=== PATIENT | female | born 1965 | race Caucasian/White ===

== ENCOUNTER 2017-04-22 06:15 | Emergency (ER) | payer MEDICARE, OTHER ==
[~2017-04-22] VITALS: Ht 149.9 cm; Wt 70.5 kg
[~2017-04-22 06:15] MED LIST: ACET65TA; CELE100C; COLA100C2; LISI20TA5; NEUR100C; PROV90AE; ROBA750T
[2017-04-22] MEDS ORDERED: MONT10TA2 (06:31)
[2017-04-22 09:08] VITALS: BP 133/88
--- NOTE | 2017-04-22 09:52 | REP ---
Clinical: Acute cough . Comparison: 07/30/2014 . Technique: PA and lateral. Findings: The mediastinum and cardiac silhouette are normal. The lung galloway are clear and without acute consolidation, effusion, or pneumothorax. The skeletal structures are intact and normal. Impression: 1. No acute cardiopulmonary process. Signed by Dima Espino MD 04/22/2017 09:43 A
[2017-04-22] MEDS ORDERED: ZITHTAB PO (09:58)
[2017-04-22] MEDS ORDERED: VENTAER IN (09:58)
== END 2017-04-22 10:03 | disposition home or self-care (01) ==
LOC: M ED 06:15
DX: J20.9 Acute bronchitis, unspecified (principal); Z72.0 Tobacco use

== ENCOUNTER → 2018-02-25 | Outpatient (CLI) | payer MEDICARE ==
[~2018-02-25] MED LIST changes: -ACET65TA; -CELE100C; -COLA100C2; +GASTROGRAFIN SOLUTION 30ML (Q9963) As Ordered; +ISOVUE-370 76% 100ML VIAL (Q9967) As Ordered; -LISI20TA5; -NEUR100C; -PROV90AE; -ROBA750T
[2018-02-25 09:50] LABS: HEMOGLOBIN 15.1 g/dl (12.0-15.5); MEAN CORPUSCULAR HEMOGLOBIN 30.4 pg (27.0-33.0); MEAN CORPUSCULAR HGB CONC 32.8 g/dl (32.0-36.5); MEAN CORPUSCULAR VOLUME 92.6 fl (80.0-96.0); PLATELET COUNT, AUTOMATED 191 10^3/uL (150-450); RED BLOOD COUNT 4.97 10^6/uL (4.00-5.40); WHITE BLOOD COUNT 6.8 10^3/uL (4.0-10.0)
[2018-02-25 10:07] LABS: ALBUMIN 3.6 GM/DL (3.2-5.2); ALBUMIN/GLOBULIN RATIO 1.29 (1.00-1.93); ALKALINE PHOSPHATASE 87 U/L (45-117); ALT/SGPT 26 U/L (12-78); ANION GAP 6 MEQ/L (8-16); AST/SGOT 12 U/L (7-37); BILIRUBIN,TOTAL 0.3 MG/DL (0.2-1.0); BLOOD UREA NITROGEN 12 MG/DL (7-18); CALCIUM LEVEL 9.3 MG/DL (8.5-10.1); CARBON DIOXIDE LEVEL 27 MEQ/L (21-32); CHLORIDE LEVEL 110 MEQ/L (98-107); CHOLESTEROL LEVEL 218 MG/DL (<200); CHOLESTEROL RISK RATIO 5.069 (<5); GLOMERULAR FILTRATION RATE > 60.0 (>51); GLUCOSE, FASTING 89 MG/DL (70-100); HDL CHOLESTEROL 43 MG/DL (>40); LDL CHOLESTEROL 144 MG/DL (<100); NON-HDL-C 175 MG/DL; POTASSIUM SERUM 4.4 MEQ/L (3.5-5.1); SODIUM LEVEL 143 MEQ/L (136-145); THYROID STIMULATING HORMONE 0.748 uIU/ML (0.358-3.740); TOTAL PROTEIN 6.4 GM/DL (6.4-8.2); TRIGLYCERIDES LEVEL 155 MG/DL (<150)
[2018-02-25 10:15] LABS: ESTIMATED AVERAGE GLUCOSE 111 MG/DL (60-110); HEMOGLOBIN A1c 5.5 %
== END ==
LOC: M RAD 12:31
DX: Z00.00 Encounter for general adult medical examination without abnormal findings (principal); R10.32 Left lower quadrant pain; K76.89 Other specified diseases of liver; N28.1 Cyst of kidney, acquired; D35.00 Benign neoplasm of unspecified adrenal gland; K82.9 Disease of gallbladder, unspecified
CPT/HCPCS: Q9963

== ENCOUNTER → 2018-03-11 | Outpatient (CLI) | payer MEDICARE | LOC: M RAD 06:47 | DX: K21.9 Gastro-esophageal reflux disease without esophagitis (principal) | CPT/HCPCS: 76705 ==

== ENCOUNTER 2018-05-16 10:41 | Emergency (ER) | payer MEDICARE, MEDICAID | END 2018-05-16 11:47 | disposition home or self-care (01) | LOC: M ED 10:41 | DX: J06.9 Acute upper respiratory infection, unspecified (principal); I10 Essential (primary) hypertension; J45.909 Unspecified asthma, uncomplicated; K21.9 Gastro-esophageal reflux disease without esophagitis; F33.9 Major depressive disorder, recurrent, unspecified; Z79.899 Other long term (current) drug therapy; Z88.5 Allergy status to narcotic agent; Z88.8 Allergy status to other drugs, medicaments and biological substances; F17.210 Nicotine dependence, cigarettes, uncomplicated | CPT/HCPCS: 99283 ==

== ENCOUNTER 2018-10-21 18:07 | Emergency (ER) | payer MEDICARE ==
[~2018-10-21] VITALS: Ht 149.9 cm; Wt 69.1 kg
[~2018-10-21 18:07] MED LIST changes: +ACET65TA; +CELE100C; +COLA100C2; -GASTROGRAFIN SOLUTION 30ML (Q9963) As Ordered; -ISOVUE-370 76% 100ML VIAL (Q9967) As Ordered; +LISI20TA5 PO; +MONT10TA2; +NEUR100C PO; +PROV90AE; +ROBA750T; +VENTAER IN; +ZITHTAB PO
[2018-10-21] MEDS ORDERED: DICL1GEL3 TOP (20:31)
[2018-10-21 20:37] VITALS: BP 148/83
--- NOTE | 2018-10-22 07:20 | REP ---
RIGHT ELBOW, FOUR VIEWS: HISTORY: Elbow pain. There is no acute fracture or dislocation. The joint space is normal in appearance. IMPRESSION:There is no acute fracture or dislocation. Electronically Signed by David Travis MD 10/22/2018 08:01 A
== END 2018-10-21 20:43 | disposition home or self-care (01) ==
LOC: M ED 18:07
DX: M77.11 Lateral epicondylitis, right elbow (principal); J45.909 Unspecified asthma, uncomplicated; I10 Essential (primary) hypertension; Z72.0 Tobacco use; Z79.899 Other long term (current) drug therapy; Z88.8 Allergy status to other drugs, medicaments and biological substances; Z88.5 Allergy status to narcotic agent

== ENCOUNTER 2019-01-21 08:39 | Outpatient (RCR) | payer MEDICARE, MEDICAID ==
[~2019-01-21 08:39] MED LIST changes: +DICL1GEL3 TOP
== END 2019-01-31 ==
LOC: M OT 08:39
PROVIDERS: ATTEND Physician Assistant Surgical
DX: Z47.89 Encounter for other orthopedic aftercare (principal); M77.11 Lateral epicondylitis, right elbow

== ENCOUNTER 2019-02-23 09:00 | Outpatient (RCR) | payer MEDICARE, MEDICAID ==
[2019-02-26] MEDS ORDERED: POTA10TA17 PO (19:55)
[2019-02-26] MEDS ORDERED: POTA10CA32 PO (19:55)
== END 2019-03-02 ==
LOC: M OT 09:00
PROVIDERS: ATTEND Physician Assistant Surgical
DX: Z47.89 Encounter for other orthopedic aftercare (principal); M77.11 Lateral epicondylitis, right elbow

== ENCOUNTER 2019-02-26 19:51 | Emergency (ER) | payer MEDICARE, MEDICAID ==
[~2019-02-26] VITALS: Ht 149.9 cm; Wt 69.5 kg
[2019-02-26] MEDS ORDERED: POTA10CA32 PO (19:55)
[2019-02-26] MEDS ORDERED: POTA10TA17 PO (19:55)
[2019-02-26 20:08] VITALS: BP 168/97
--- NOTE | 2019-02-27 00:11 | ECGEPIP ---
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
== END 2019-02-26 20:57 | disposition home or self-care (01) ==
LOC: M ED 19:51
DX: G54.0 Brachial plexus disorders (principal); I10 Essential (primary) hypertension; Z88.5 Allergy status to narcotic agent; Z88.8 Allergy status to other drugs, medicaments and biological substances

== ENCOUNTER 2019-03-19 20:50 | Emergency (ER) | payer MEDICAID, MEDICARE ==
[~2019-03-19] VITALS: Ht 149.9 cm; Wt 68.6 kg
[~2019-03-19 20:50] MED LIST changes: +POTA10CA32 PO; +POTA10TA17 PO
[2019-03-19] MEDS ORDERED: CETI10CA2 PO (22:43)
[2019-03-19] MEDS ORDERED: TESS100C PO (22:43)
[2019-03-19] MEDS ORDERED: FLON1SPR NARES (22:43)
[2019-03-19 22:58] VITALS: BP 141/74
== END 2019-03-19 23:01 | disposition home or self-care (01) ==
LOC: M ED 20:50
DX: J06.9 Acute upper respiratory infection, unspecified (principal); I10 Essential (primary) hypertension; J45.909 Unspecified asthma, uncomplicated; K21.9 Gastro-esophageal reflux disease without esophagitis; Z79.899 Other long term (current) drug therapy; Z88.5 Allergy status to narcotic agent; Z88.8 Allergy status to other drugs, medicaments and biological substances; Z87.891 Personal history of nicotine dependence

== ENCOUNTER 2019-07-09 11:19 | Emergency (ER) | payer MEDICARE ==
[~2019-07-09] VITALS: Ht 149.9 cm; Wt 70.3 kg
[~2019-07-09 11:19] MED LIST changes: +CETI10CA2 PO; +FLON1SPR NARES; -MONT10TA2; +MONT10TA4; +TESS100C PO
--- NOTE | 2019-07-09 12:12 | REP ---
PA and lateral chest: Comparison is 04/22/2017. The lung galloway are clear. The cardiac size is normal. The miguel, mediastinum, and skeletal structures are unremarkable. Impression: Negative PA and lateral chest. There is no interval change. Electronically Signed by Johnathan Hart MD 07/09/2019 12:04 P
[2019-07-09 13:16] LABS: INFLUENZA A AMPLIFICATION POSITIVE (NEGATIVE); INFLUENZA B AMPLIFICATION NEGATIVE (NEGATIVE)
[2019-07-09] MEDS ORDERED: ACETAMINOPHEN 325 MG TAB PO ONE (13:45)
[2019-07-09] MEDS ORDERED: ALBUTEROL SULFATE 2.5 MG/0.5 ML INH NEB SOLN NEB ONE (13:45)
[2019-07-09 14:17] VITALS: BP 137/81
== END 2019-07-09 14:19 | disposition home or self-care (01) ==
LOC: M ED 11:19
DX: J45.909 Unspecified asthma, uncomplicated (principal); J09.X2 Influenza due to identified novel influenza A virus with other respiratory manifestations; I10 Essential (primary) hypertension; F33.9 Major depressive disorder, recurrent, unspecified; K21.9 Gastro-esophageal reflux disease without esophagitis; Z79.899 Other long term (current) drug therapy; Z88.5 Allergy status to narcotic agent; Z88.8 Allergy status to other drugs, medicaments and biological substances; F17.210 Nicotine dependence, cigarettes, uncomplicated

== ENCOUNTER → 2019-08-28 | Outpatient (REF) | payer MEDICARE, MEDICAID ==
[2019-08-28 17:32] LABS: BASO # 0.1 10^3/uL (0.0-0.2); BASO % 1.1 % (0.0-1.0); EOS # 0.2 10^3/uL (0.0-0.5); EOS % 2.9 % (0.0-3.0); HEMATOCRIT 45.4 % (36.0-47.0); HEMOGLOBIN 14.5 g/dl (12.0-15.5); LYMPH # 2.4 10^3/uL (1.5-5.0); LYMPH % 34.2 % (24.0-44.0); MEAN CORPUSCULAR HGB CONC 31.9 g/dl (32.0-36.5); MEAN CORPUSCULAR VOLUME 93.8 fl (80.0-96.0); MONO # 0.6 10^3/uL (0.0-0.8); MONO % 8.7 % (0.0-5.0); NEUTROPHILS # 3.7 10^3/uL (1.5-8.5); NEUTROPHILS % 52.8 % (36.0-66.0); PLATELET COUNT, AUTOMATED 227 10^3/uL (150-450); RED BLOOD COUNT 4.84 10^6/uL (4.00-5.40)
[2019-08-28 17:33] LABS: ALBUMIN 3.6 GM/DL (3.2-5.2); ALT/SGPT 33 U/L (12-78); BILIRUBIN,TOTAL 0.3 MG/DL (0.2-1.0); BLOOD UREA NITROGEN 12 MG/DL (7-18); CALCIUM LEVEL 9.9 MG/DL (8.5-10.1); CARBON DIOXIDE LEVEL 28 MEQ/L (21-32); CHLORIDE LEVEL 106 MEQ/L (98-107); CREATININE FOR GFR 0.72 MG/DL (0.55-1.30); GLOMERULAR FILTRATION RATE > 60.0 (>51); GLUCOSE, FASTING 111 MG/DL (70-100); POTASSIUM SERUM 4.1 MEQ/L (3.5-5.1); SODIUM LEVEL 139 MEQ/L (136-145); TOTAL PROTEIN 6.8 GM/DL (6.4-8.2)
[2019-08-28 17:37] LABS: HEMOGLOBIN A1c 5.9 %
== END ==
LOC: M SFHCPLAZ 15:15
PROVIDERS: ATTEND Family Medicine
DX: E16.1 Other hypoglycemia (principal); Z79.899 Other long term (current) drug therapy
CPT/HCPCS: 36415; 80053; 83036; 83525; 84439; 84443; 85025; G0463

== ENCOUNTER 2019-12-10 17:25 | Emergency (ER) | payer MEDICARE, MEDICAID ==
[~2019-12-10] VITALS: Ht 149.9 cm; Wt 70.2 kg
[2019-12-10] MEDS ORDERED: NS 1,000 ML IV ONE (18:15)
[2019-12-10] MEDS ORDERED: ONDANSETRON 4MG/2ML VIAL IV ONE (18:15)
[2019-12-10] MEDS ORDERED: DICYCLOMINE 10 MG CAP PO ONE (18:15)
[2019-12-10 18:40] LABS: BASO # 0.1 10^3/uL (0.0-0.2); BASO % 1.1 % (0.0-1.0); EOS # 0.3 10^3/uL (0.0-0.5); EOS % 3.9 % (0.0-3.0); HEMATOCRIT 44.5 % (36.0-47.0); HEMOGLOBIN 14.6 g/dl (12.0-15.5); LYMPH # 2.7 10^3/uL (1.5-5.0); LYMPH % 37.6 % (24.0-44.0); MEAN CORPUSCULAR HEMOGLOBIN 30.4 pg (27.0-33.0); MEAN CORPUSCULAR HGB CONC 32.8 g/dl (32.0-36.5); MEAN CORPUSCULAR VOLUME 92.7 fl (80.0-96.0); MONO # 0.7 10^3/uL (0.0-0.8); MONO % 9.4 % (0.0-5.0); NEUTROPHILS # 3.4 10^3/uL (1.5-8.5); NEUTROPHILS % 47.6 % (36.0-66.0); PLATELET COUNT, AUTOMATED 202 10^3/uL (150-450); WHITE BLOOD COUNT 7.1 10^3/uL (4.0-10.0)
[2019-12-10 19:17] LABS: ALBUMIN 3.5 GM/DL (3.2-5.2); ALT/SGPT 26 U/L (12-78); BILIRUBIN,DIRECT < 0.1 MG/DL (0.0-0.2); BILIRUBIN,TOTAL 0.3 MG/DL (0.2-1.0); LIPASE 108 U/L (73-393); TOTAL PROTEIN 6.6 GM/DL (6.4-8.2)
[2019-12-10] MEDS ORDERED: SIME40TA PO (19:32)
[2019-12-10] MEDS ORDERED: ONDA4TAB6 PO (19:32)
[2019-12-10 19:48] VITALS: BP 159/88
== END 2019-12-10 19:50 | disposition home or self-care (01) ==
LOC: M ED 17:25
DX: R11.2 Nausea with vomiting, unspecified (principal); G89.29 Other chronic pain; R10.9 Unspecified abdominal pain; F17.200 Nicotine dependence, unspecified, uncomplicated; I10 Essential (primary) hypertension; J45.909 Unspecified asthma, uncomplicated; K21.9 Gastro-esophageal reflux disease without esophagitis; Z88.6 Allergy status to analgesic agent; Z88.8 Allergy status to other drugs, medicaments and biological substances; Z79.51 Long term (current) use of inhaled steroids; Z79.899 Other long term (current) drug therapy
CPT/HCPCS: 80047; 80076; 83690; 85025; 99284; J2405

== ENCOUNTER → 2020-03-14 | Outpatient (CLI) | payer MEDICARE ==
[~2020-03-14] MED LIST changes: +ONDA4TAB6 PO; +SIME40TA PO
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
== END ==
LOC: M PAIN 08:15
PROVIDERS: ATTEND Family Medicine
DX: M54.9 Dorsalgia, unspecified (principal); I10 Essential (primary) hypertension; G89.4 Chronic pain syndrome; G25.81 Restless legs syndrome; E78.5 Hyperlipidemia, unspecified; E55.9 Vitamin D deficiency, unspecified; M79.7 Fibromyalgia; F17.210 Nicotine dependence, cigarettes, uncomplicated; Z79.899 Other long term (current) drug therapy; Z88.5 Allergy status to narcotic agent; Z88.6 Allergy status to analgesic agent; Z88.8 Allergy status to other drugs, medicaments and biological substances

== ENCOUNTER → 2020-03-24 | Outpatient (CLI) | payer MEDICARE, OTHER, MEDICAID ==
[~2020-03-24] MED LIST changes: +KETO10TAB PO
--- NOTE | 2020-03-24 11:57 | REPVR ---
PROCEDURE INFORMATION: Exam: MR Lumbar Spine Without Contrast. Exam date and time: 03/24/2020 11:39 AM Age: 54 years old Clinical indication: Pain; Other: Dorsalgia TECHNIQUE: Imaging protocol: Multiplanar magnetic resonance images of the lumbar spine without intravenous contrast. COMPARISON: No relevant prior studies available. FINDINGS: Vertebrae: There is straightening of the normal lumbar lordosis. There is no fracture or listhesis. Spinal cord: Normal signal. No cord compression. L1-L2: There is shallow disc bulging. There is mild facet hypertrophy. The spinal canal and neural foramina are patent. L2-L3: There is diffuse disc bulging. There is mild facet and ligamentous hypertrophy. The spinal canal and neural foramina are patent. L3-L4: There is diffuse disc bulging asymmetric to the left. There is mild facet and ligamentous hypertrophy. There is mild left neural foraminal narrowing. L4-L5: There is diffuse disc bulging with a left foraminal annular tear. There is [id number] facet and ligamentous hypertrophy. There is mild bilateral lateral recess stenosis. There is mild canal stenosis, with a residual diameter of 10 mm. There is mild bilateral neural foraminal narrowing. L5-S1: There is diffuse disc bulging. There is severe facet hypertrophy. There is mild bilateral lateral recess stenosis. There is moderate bilateral neural foraminal narrowing. Soft tissues: Unremarkable. IMPRESSION: Degenerative disc disease and spondylosis. At L5/S1, changes contribute to moderate bilateral neural foraminal narrowing. Electronically signed by: Diane Kimble On 03/24/2020 11:57:48 AM
== END ==
LOC: M RAD 10:48
PROVIDERS: ATTEND Family Medicine
DX: M51.26 Other intervertebral disc displacement, lumbar region (principal)

== ENCOUNTER 2020-04-08 03:30 | Emergency (ER) | payer OTHER, MEDICARE ==
[~2020-04-08 03:30] MED LIST changes: -KETO10TAB PO
[2020-04-08] MEDS ORDERED: KETO10TAB PO (05:11)
[2020-04-08] MEDS ORDERED: KETOROLAC 30 MG/ML 1ML VIAL IM ONE (05:15)
--- NOTE | 2020-04-08 07:56 | REP ---
INDICATION: pain. COMPARISON: None. TECHNIQUE: Four views. FINDINGS: Four views of the left elbow demonstrate normal bones, joints, and soft tissues. No fracture or subluxation is seen. No opaque foreign body noted. IMPRESSION: Negative left elbow series. <Electronically signed by Diogenes Redd > 04/08/20 [id number]
== END 2020-04-08 05:42 | disposition home or self-care (01) ==
LOC: M ED 03:30
DX: M25.522 Pain in left elbow (principal); I10 Essential (primary) hypertension; K21.9 Gastro-esophageal reflux disease without esophagitis; J45.909 Unspecified asthma, uncomplicated; F17.200 Nicotine dependence, unspecified, uncomplicated; F32.9 Major depressive disorder, single episode, unspecified; Z88.5 Allergy status to narcotic agent; Z88.6 Allergy status to analgesic agent; Z88.8 Allergy status to other drugs, medicaments and biological substances; Z79.899 Other long term (current) drug therapy
CPT/HCPCS: 36415; 73080; 80047; 99282; J1885

== ENCOUNTER → 2020-04-18 | Outpatient (CLI) | payer MEDICARE ==
[~2020-04-18] MED LIST changes: +KETO10TAB PO
--- NOTE | 2020-04-20 06:03 | ECWPNPC ---
PATIENT NAME: MARGARET LANIER : 1965 GENDER: FEMALE VISIT DATE: 04/18/2020 DISCHARGE DATE: 04/18/20 1010 VISIT LOCKED DATE TIME: PHYSICIAN: CRISTIANA LUEVANO PHYSICIAN PAGER NO: ACTIVE RESOURCE: CRISTIANA LUEVANO REASON FOR APPOINTMENT 1. MRI REVIEW HISTORY OF PRESENT ILLNESS GENERAL: - 54-YEAR-OLD FEMALE IN FOR CHRONIC PAIN FOLLOW-UP. PATIENT HAD RECENT MRI WHICH WILL BE REVIEWED WITH PATIENT TODAY. SHE RATES HER PAIN CURRENTLY AT A 5 AND HALF OUT OF 10 AND DESCRIBES IT ACHING. FALL RISK SCREENING: SCREENING :ONE FALL WITHOUT INJURY IN THE PAST YEAR PAIN SCREENING: PATIENT HAS A COMPLAINT OF ACUTE OR CHRONIC PAIN :YES LOCATION OF PAIN:LOW BACK, LEFT HIP, RIGHT HIP INTENSITY OF PAIN (SCALE OF 1 TO 10):5.5 WHAT DOES YOUR PAIN FEEL LIKE:ACHING DURATION:CONTINOUS, CONSTANT PAIN IS INCREASED BY:ACTIVITIES PAIN IS DECREASED BY:OTHERS HOT WATER TREATMENT/MEDICATIONS USED TO MANAGE PAIN:NSAIDS LEVEL OF RELIEF FROM PAIN TREATMENTS IN THE PAST:0% PAIN HAS INTERFERED WITH THE FOLLOWING:BATHING/DRESSING, WALKING ABILITY, HOUSEWORK, SLEEP, TRANSPORTATION, TOILETING NURSING NOTE: -. PAIN CENTER INTAKE QUESTIONS: DO YOU HAVE A HISTORY OF MRSA? :NO DO YOU TAKE A BLOOD THINNERS? :NO DO YOU HAVE ANY BLEEDING DISORDERS? :NO ANY NEW NUMBNESS OR WEAKNESS IN YOUR LEGS OR ARMS? :YES LEGS, LEFT ARM ANY PACEMAKER,DEFIBRILLATOR, OR DORSAL COLUMN STIMULATOR? :NO DO YOU HAVE ANY RASHES OR OPEN SORES? :NO ARE YOU ALLERGIC TO IV DYE? :NO ARE YOU DIABETIC? :NO ANY NEW PROBLEMS WITH YOUR MEDICATIONS? :NO HAVE YOU RECEIVED A VACCINE IN THE PAST 30 DAYS? :NO DO YOU PLAN TO RECEIVE A VACCINE IN THE NEXT 21 DAYS? :NO DO YOU NEED ANY PRESCRIPTION? :NO DO YOU TAKE ANY IMMUNOSUPPRESSIVE MEDICATIONS? :NO IS THERE A CHANCE YOU COULD BE ? :NO ARE YOU BREAST FEEDING? :NO CURRENT MEDICATIONS TAKING ACETAMINOPHEN 500 MG CAPSULE 1 CAPSULE NEEDED ORALLY EVERY 6 HRS, NOTES: PRN TAKING SIMETHICONE 80 MG TABLET 1 TABLET ORALLY THREE TIMES DAILY NEEDED TAKING ALBUTEROL SULFATE HFA 108 (90 BASE) MCG/ACT AEROSOL SOLUTION 2 PUFFS NEEDED FOR COUGH INHALATION EVERY 4 HRS TAKING NYSTATIN [id number] UNIT/GM POWDER 1 APPLICATION TO AFFECTED AREA TOPICALLY TWICE A DAY LEFT BREAST TAKING IBUPROFEN 200 MG TABLET 1 TABLET WITH FOOD OR MILK NEEDED ORALLY DAILY, NOTES: PRN TAKING LISINOPRIL 20 MG TABLET 1 TAB ORALLY DAILY TAKING PATADAY , NOTES: NIGHTLY AT BEDTIME NOT-TAKING TESSALON PERLES 100 MG CAPSULE 1 CAP ORALLY TID PRN COUGH NOT-TAKING GABAPENTIN 300 MG CAPSULE 1 CAPSULE ORALLY BEFORE BEDTIME PRN NOT-TAKING ONDANSETRON 4 MG TABLET DISINTEGRATING 1 TABLET ON THE TONGUE AND ALLOW TO DISSOLVE ORALLY EVERY 6-8 HOURS NEEDED FOR NAUSEA NOT-TAKING OMEPRAZOLE 40 MG CAPSULE DELAYED RELEASE 1 CAPSULE 30 MINUTES BEFORE MORNING MEAL ORALLY ONCE A DAY NOT-TAKING DEXAMETHASONE 2 MG TABLET 1 TABLET ORALLY BID PAST MEDICAL HISTORY HYPERTENSION CHRONIC PAIN SYNDROME RESTLESS LEG SYNDROME HYPERLIPIDEMIA. LDL 08/14 128 (ASCVD RISK 6.1%) VITAMIN D DEFICIENCY 05/15 GASTRIC EMPTYING STUDY-UNREMARKABLE UNSPECIFIED ESSENTIAL HYPERTENSION 12/12 MRI L SPINE DIFFUSE DISC BULGE L3-4 MIN THEAL SAC COMPRESSION, MINIMAL CENTRAL CANAL L4-5, L5-S1 SECONDARY TO THE DISC BULGE LIGAMENTOUS AND FACET HYPERTROPHY, COMPRESSION OF L4 NERVE IN THE NEURAL FORAMEN 616, CERVICAL SPINE X-RAY, C5-6 DEGENERATIVE DISC DISEASE WITH LEFT FORAMINAL ENCROACHMENT AT THIS LEVEL. FACET ARTICULATIONS DEMONSTRATE MILD OSTEOARTHRITIS, SLIGHTLY PROGRESSED FROM APRIL 2008 03/26/2016 PFTS AT [facility], POSITIVE METHACHOLINE CHALLENGE STUDY. 04/19/2013 SLEEP STUDY AT [facility] SLEEP DISORDER CENTER, OBSTRUCTIVE SLEEP APNEA SYNDROME, NIGHTLY USE OF PRESSURE THERAPY AT 5 CM'S OF WATER FIBROMYALGIA ALLERGIES COZAAR: RASH - ALLERGY HYDROCODONE-ACETAMINOPHEN: RASH - ALLERGY CODEINE SULFATE: RASH - ALLERGY ASPIRIN: UPSET STOMACH/ITCHING - SIDE EFFECTS GABAPENTIN: UPSET STOMACH - SIDE EFFECTS SURGICAL HISTORY TUBAL (ANAI) 1989 COLONOSCOPY ([facility]) NEGATIVE - REPORTEDLY DUE IN 2016 REFUSES 02/201806/10/00 EGD REINDL- NORMAL ESOPHAGUS/STOMACH/DUODENUM, GERD, CONT DEXILANT. 06/19/13 CYST REMOVAL 2009 FAMILY HISTORY FATHER: 69 YRS, HYDROCEPHALUS; ALZHEIMER MOTHER: ALIVE 67 YRS, ( MON)DEPRESSION (ADMITTED), LOW BLOODSUGAR SIBLINGS: ALIVE, HALF BROTHERS (5) - ALL REPORTEDLY ARE ALCOHOLIC SON(S): ALIVE, SONS (2) - 1 WITH MENTAL RETARDATION, 1 WITH AUTISM 4 BROTHER(S) . 2 SON(S) - HEALTHY. PATIENT IS ADOPTED BUT SHE DID FIND HER BIOLOGICAL PARENTS ABOVE SO SHE KNOWS THEIR MEDICAL HISTORYSON HAD MELANOMA. SOCIAL HISTORY GENERAL: TOBACCO USE ARE YOU A:CURRENT SMOKER ARE YOU INTERESTED IN QUITTING?NOT READY TO QUIT COUNSELED THE PATIENT ON SMOKING EFFECTS, EDUCATION NHCBLKEQ47/16/2020 HOW MANY CIGARETTES A DAY DO YOU SMOKE?21-30 HOW SOON AFTER YOU WAKE UP DO YOU SMOKE YOUR FIRST CIGARETTE?WITHIN 5 MIN HOW OFTEN DO YOU SMOKE CIGARETTES?EVERY DAY PATIENT COUNSELED ON THE DANGERS OF TOBACCO USE AND URGED TO QUIT:08/28/2019 SMOKING CESSATION INFORMATION GIVEN08/28/2019 LATEX QUESTIONNAIRE LATEX ALLERGY : HAVE YOU EVER DEVELOPED ANY TYPE OF REACTION AFTER HANDLING LATEX PRODUCTS SUCH RUBBER GLOVES, CONDOMS, DIAPHRAGMS, BALLOONS, SOCKS, OR UNDERWEAR?NO LATEX ALLERGY : HAVE YOU EVER DEVELOPED ANY TYPE OF REACTION DURING OR AFTER DENTAL APPOINTMENT, VAGINAL/RECTAL EXAMINATION, SURGICAL PROCEDURE, OR ANY OTHER EXPOSURE?NO LATEX RISK : HAVE YOU EVER HAD ANY DIFFICULTY BREATHING OR HIVES AFTER EATING OR HANDLING ANY FRUITS, OR VEGETABLES; SUCH KIWI, BANANAS, STONE FRUITS, OR CHESTNUTSNO LATEX RISK : DO YOU HAVE A PREVIOUS PERSONAL HISTORY OF MORE THAN NINE SURGERIES, SPINA BIFIDA, OR REPEATED CATHERIZATIONS? NO LATEX RISK : ARE YOU FREQUENTLY EXPOSED TO LATEX PRODUCTS IN YOUR OCCUPATION?NO DATE ASKED : 03/10/2020 BMI CARE GOAL FOLLOW-UP ABOVE NORMAL BMI FOLLOW-UPDIETARY MANAGEMENT EDUCATION, GUIDANCE, AND COUNSELING ALCOHOL SCREENING POINTS: 0, INTERPRETATION: NEGATIVE. RECREATIONAL DRUG USE DENIES. CAFFEINE CAFFEINE USE?YES 4/ DAY SEXUAL HX HAD SEX IN THE LAST 12 MONTHS (VAGINAL, ORAL, OR ANAL)?YES WITHMEN ONLY USE PROTECTION?NO LMP:2013 HAVE YOU EVER HAD AN STD?NO HIV / HEP-C SCREENING HIV TEST OFFERED TO PATIENT:YES DATE OFFERED:02/10/2018 TEST ACCEPTED:NO HEP-C TEST OFFERED TO PATIENT:YES DATE OFFERED:02/10/2018 REASON:OTHER (DOCUMENT IN NOTE) TESTED NEGATIVE IN THE PAST TEST ACCEPTED:NO REASON:PATIENT DECLINED BROCHURE PROVIDED TO PATIENTNO DECLINED, PAMPLET PROTESTANT NO SAMARITAN BELIEFS THAT WOULD IMPACT HEALTH CARE. LANGUAGE LANGUAGES SPOKEN:[place] EDUCATION GRADE 10. LEARNING BARRIERS / SPECIAL NEEDS BARRIERS TO LEARNING?NO HEARING IMPAIRED?NO VISION IMPAIRED?NO COGNITIVELY IMPAIRED?NO READINESS TO LEARN?YES LEARNING PREFERENCES?NO LEARNING CAPABILITIES PRESENT?YES EMOTIONAL BARRIERS?NO SPECIAL DEVICES?NO STEREOTYPER HELPER NEEDED?NO DOMESTIC VIOLENCE NONE. OCCUPATION: DISABILITY AND WORKS AT [employer]. 5PM-9PM. DIET: REGULAR, WORKING TO INCREASE THE FIBER IN HER DIET AND DECREASE RED MEAT. EXERCISE: NO REGULAR EXERCISE. MARITAL STATUS: . OTHERS AT HOME: BOYFRIEND X 4 YRS , CHILDREN , OF 2 CHILDRENS. PAIN CLINIC PFS, CLERGY, PUBLIC HEALTH REFERRALS HAS THE PATIENT BEEN EDUCATED REGARDING HIS/HER PLAN OF CARE?YES HAS THE PATIENT BEEN EDUCATED REGARDING PAIN, THE RISK FOR PAIN, THE IMPORTANCE OF EFFECTIVE PAIN MANAGEMENT, AND THE PAIN ASSESSMENT PROCESS?YES ADVANCE DIRECTIVE ADVANCE DIRECTIVE DISCUSSED WITH PATIENT:YES DISCUSSED, PT DECLINED HOSPITALIZATION/MAJOR DIAGNOSTIC PROCEDURE CHILDBEARING REVIEW OF SYSTEMS CONSTITUTIONAL: ANY RECENT FEVER NO . CHILLS NO . WEIGHT CHANGE OF UNKNOWN REASONS NO . GASTROENTEROLOGY: NEW UNEXPLAINABLE CHANGES IN BOWEL CONTROL NO . CONSTIPATION NO . GENITOURINARY: ANY NEW CHANGE IN BLADDER CONTROL? NO . NEUROLOGY: NEW ONSET DIZZINESS OR NEUROLOGICAL CHANGES NOT MENTIONED NO . NEW NUMBNESS OR PAIN PATTERNS NOT MENTIONED AND PERTINENT TO TODAY'S VISIT NO . CARDIOLOGY: NEW CHEST PRESSURE NO . NEW CHEST PAIN NO . RESPIRATORY: UNEXPLAINABLE COUGH NO . NEW SHORTNESS OF BREATH NO . VITAL SIGNS WT 154.8 LBS, HT 59.75 IN, BMI 30.48 INDEX, BP 164/107 MM HG, HR 95 /MIN, RR 18 /MIN, TEMP 96.8 F, OXYGEN SAT % 97%, SAFE IN ENV? (Y/N) Y, NA INITIALS AW 0910, REVIEWED BY: SHERYL LOPEZ KNOW ABOUT BPNP AWARE. EXAMINATION GENERAL EXAMINATION: GENERALNO ACUTE DISTRESS, WELL NOURISHED AND HYDRATED. PSYCHAPPROPRIATE MOOD AND AFFECT . LUNGS:CLEAR TO AUSCULTATION BILATERALLY, NO WHEEZES, RHONCHI, RALES. HEART:NO MURMURS, REGULAR RATE AND RHYTHM. BACK:POINT TENDER BILATERAL LUMBAR SPINE, SURROUNDING SKIN SHOWS NO ERYTHEMA, ECCHYMOSIS, INCREASED WARMTH, AND/OR SKIN ERUPTIONS NOTED. PATIENT DOES ENDORSE INCREASED PAIN WITH FACET LOADING. . MUSCULOSKELETAL:EQUAL STRENGTH OF LOWER EXTREMITIES BILATERALLY . 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 MRI WAS REVIEWED WITH PATIENT. GIVEN PRESENTING SYMPTOMS AND RESULTS OF PHYSICAL EXAMINATION RECOMMENDED BILATERAL THERAPEUTIC LUMBAR FACET BLOCK L4-L5 L5-S1 WITH POSTPROCEDURAL FOLLOW-UP. PATIENT HAS EXPRESSED UNDERSTANDING OF AND WAS IN AGREEMENT WITH TREATMENT PLAN. GIVEN TIME TO ASK QUESTIONS AND EXPRESS CONCERNS. LUMBAR FACET BLOCK TEACHING DONE. EM. PROCEDURE CODES FA211 ESTABILISHED PATIENT [facility] CHARGE DISPOSITION & COMMUNICATION FOLLOW UP POSTPROCEDURE (REASON: BILATERAL THERAPEUTIC LUMBAR FACET BLOCK L4-L5 L5-S1) ELECTRONICALLY SIGNED BY CYNDI BRENNAN ON 04/19/2020 AT 08:34 AM EST DISCLAIMER : THIS IS A VISIT SUMMARY EXTRACTED FROM THE [facility] CHART. IT IS NOT A COPY OF THE [facility] PROGRESS NOTE. MISA
== END ==
LOC: M PAIN 09:15
PROVIDERS: ATTEND Family Medicine
DX: M47.817 Spondylosis without myelopathy or radiculopathy, lumbosacral region (principal); F17.210 Nicotine dependence, cigarettes, uncomplicated; I10 Essential (primary) hypertension; G89.4 Chronic pain syndrome; G25.81 Restless legs syndrome; E78.5 Hyperlipidemia, unspecified; E55.9 Vitamin D deficiency, unspecified; M79.7 Fibromyalgia; Z79.899 Other long term (current) drug therapy; Z88.5 Allergy status to narcotic agent; Z88.6 Allergy status to analgesic agent; Z88.8 Allergy status to other drugs, medicaments and biological substances

== ENCOUNTER → 2020-06-01 | Outpatient (CLI) | payer MEDICARE ==
[~2020-06-01] MED LIST changes: -MONT10TA4; +MONT5TAB2
== END ==
LOC: M LABSMTC 10:05
PROVIDERS: ATTEND Anesthesiology
DX: Z20.828 Contact with and (suspected) exposure to other viral communicable diseases (principal)

== ENCOUNTER → 2020-06-06 | Outpatient (CLI) | payer MEDICARE ==
[~2020-06-06] MED LIST changes: +BUPIVACAINE HCL 0.25% 30ML VIAL As Ordered ONE; +ISOVUE-M 300 61% 15ML VIAL As Ordered ONE; +LIDOCAINE 1% SDV 30ML VIAL As Ordered ONE; +TRIAMCINOLONE ACETONIDE SUSP 40 MG/ML VIAL (J3301) As Ordered ONE; +diazePAM 5MG TABLET As Ordered ONE
--- NOTE | 2020-06-06 10:34 | REP ---
INDICATION: BILATERAL THERAPEUTIC LUMBAR FACET BLOCK L4-5, L5-S1. COMPARISON: None. TECHNIQUE: Two views. 15.9 seconds of fluoroscopy time is reported. FINDINGS: A sequence of 2 last image hold fluoroscopically obtained spot radiograph(s) of the lumbar spine document(s) needle position(s) and contrast injection associated with injection procedure. IMPRESSION: Procedural imaging. <Electronically signed by Diogenes Redd > 06/06/20 1729
--- NOTE | 2020-06-08 04:21 | ECWPNPC ---
PATIENT NAME: MARGARET LANIER : 1965 GENDER: FEMALE VISIT DATE: 06/06/2020 DISCHARGE DATE: 06/06/20 1057 VISIT LOCKED DATE TIME: PHYSICIAN: MARIIA BHARDWAJ MD PHYSICIAN PAGER NO: ACTIVE RESOURCE: MARIIA BHARDWAJ MD REASON FOR APPOINTMENT 1. BILATERAL THERAPEUTIC LUMBAR FACET BLOCK L4-L5 L5-S1 HISTORY OF PRESENT ILLNESS GENERAL: -. FALL RISK SCREENING: SCREENING :ONE FALL WITH INJURY IN THE PAST YEAR APPROX 6 MONTHS AGO TRIPPED OVER HER FEET-BRUISED RIGHT ARM. PAIN SCREENING: PATIENT HAS A COMPLAINT OF ACUTE OR CHRONIC PAIN :YES LOCATION OF PAIN:LOW BACK INTENSITY OF PAIN (SCALE OF 1 TO 10):4 AVERAGE 4-5 DURING THE DAY AND 8 AT NIGHT WHAT DOES YOUR PAIN FEEL LIKE:ACHING, CONTINOUS, OTHER "FEELS LIKE A VICE BARMAID" DURATION:CONTINOUS, CONSTANT, AWAKENS FROM SLEEP PAIN IS INCREASED BY:PROLONGED STANDING PROLONG SITTING PAIN IS DECREASED BY:OTHERS HOT SOAKS NURSING NOTE: -. PAIN CENTER INTAKE QUESTIONS: DO YOU HAVE A HISTORY OF MRSA? :NO DO YOU TAKE A BLOOD THINNERS? :NO DO YOU HAVE ANY BLEEDING DISORDERS? :NO ANY NEW NUMBNESS OR WEAKNESS IN YOUR LEGS OR ARMS? :NO ANY PACEMAKER,DEFIBRILLATOR, OR DORSAL COLUMN STIMULATOR? :NO DO YOU HAVE ANY RASHES OR OPEN SORES? :NO ARE YOU ALLERGIC TO IV DYE? :NO ARE YOU DIABETIC? :NO ANY NEW PROBLEMS WITH YOUR MEDICATIONS? :NO HAVE YOU RECEIVED A VACCINE IN THE PAST 30 DAYS? :NO DO YOU PLAN TO RECEIVE A VACCINE IN THE NEXT 21 DAYS? :NO DO YOU TAKE ANY IMMUNOSUPPRESSIVE MEDICATIONS? :NO ANY HISTORY OF SEIZURES? :NO ANY HISTORY OF CARDIAC ISSUES OR EVENTS? :NO DO YOU HAVE SLEEP APNEA? :YES DO YOU WEAR A CPAP?NO ANY RECENT HEAD INJURY? :NO DO YOU HAVE ANY NEW INFECTIONS? :NO IS THERE A CHANCE YOU COULD BE ? :NO ARE YOU BREAST FEEDING? :NO WHEN DID YOU LAST EAT? : -4804 06/05/20 WHEN DID YOU LAST DRINK? : -7015 06/06/20 WHAT DID YOU LAST DRINK? : -WATER NAME OF PERSON DRIVING YOU HOME? : [employer] DO YOU HAVE ANY OTHER QUESTIONS OR CONCERNS? : - CURRENT MEDICATIONS TAKING ACETAMINOPHEN 500 MG CAPSULE 1 CAPSULE NEEDED ORALLY EVERY 6 HRS, NOTES: PRN TAKING SIMETHICONE 80 MG TABLET 1 TABLET ORALLY THREE TIMES DAILY NEEDED TAKING ALBUTEROL SULFATE HFA 108 (90 BASE) MCG/ACT AEROSOL SOLUTION 2 PUFFS NEEDED FOR COUGH INHALATION EVERY 4 HRS TAKING IBUPROFEN 200 MG TABLET 1 TABLET WITH FOOD OR MILK NEEDED ORALLY FOUR TIMES DAILY NEEDED, NOTES: PRN TAKING LISINOPRIL 20 MG TABLET 1 TAB ORALLY DAILY, NOTES: 06/05/20 2230 TAKING MAY USE VICKS NASAL INHALER 1 DOSE DAILY NEEDED NOT-TAKING TESSALON PERLES 100 MG CAPSULE 1 CAP ORALLY TID PRN COUGH NOT-TAKING GABAPENTIN 300 MG CAPSULE 1 CAPSULE ORALLY BEFORE BEDTIME PRN NOT-TAKING ONDANSETRON 4 MG TABLET DISINTEGRATING 1 TABLET ON THE TONGUE AND ALLOW TO DISSOLVE ORALLY EVERY 6-8 HOURS NEEDED FOR NAUSEA NOT-TAKING OMEPRAZOLE 40 MG CAPSULE DELAYED RELEASE 1 CAPSULE 30 MINUTES BEFORE MORNING MEAL ORALLY ONCE A DAY NOT-TAKING DEXAMETHASONE 2 MG TABLET 1 TABLET ORALLY BID NOT-TAKING NYSTATIN [id number] UNIT/GM POWDER 1 APPLICATION TO AFFECTED AREA TOPICALLY TWICE A DAY LEFT BREAST NOT-TAKING PATADAY , NOTES: NIGHTLY AT BEDTIME MEDICATION LIST REVIEWED AND RECONCILED WITH THE PATIENT PAST MEDICAL HISTORY HYPERTENSION CHRONIC PAIN SYNDROME RESTLESS LEG SYNDROME HYPERLIPIDEMIA. LDL 08/14 128 (ASCVD RISK 6.1%) VITAMIN D DEFICIENCY 05/15 GASTRIC EMPTYING STUDY-UNREMARKABLE UNSPECIFIED ESSENTIAL HYPERTENSION 12/12 MRI L SPINE DIFFUSE DISC BULGE L3-4 MIN THEAL SAC COMPRESSION, MINIMAL CENTRAL CANAL L4-5, L5-S1 SECONDARY TO THE DISC BULGE LIGAMENTOUS AND FACET HYPERTROPHY, COMPRESSION OF L4 NERVE IN THE NEURAL FORAMEN 616, CERVICAL SPINE X-RAY, C5-6 DEGENERATIVE DISC DISEASE WITH LEFT FORAMINAL ENCROACHMENT AT THIS LEVEL. FACET ARTICULATIONS DEMONSTRATE MILD OSTEOARTHRITIS, SLIGHTLY PROGRESSED FROM APRIL 2008 03/26/2016 PFTS AT [facility], POSITIVE METHACHOLINE CHALLENGE STUDY. 04/19/2013 SLEEP STUDY AT [facility] SLEEP DISORDER [facility]ENTER, OBSTRUCTIVE SLEEP APNEA SYNDROME, NIGHTLY USE OF PRESSURE THERAPY AT 5 CM'S OF WATER FIBROMYALGIA SPRAIN LEFT ELBOW LOW BACK PAIN ALLERGIES COZAAR: RASH - ALLERGY HYDROCODONE-ACETAMINOPHEN: RASH - ALLERGY CODEINE SULFATE: RASH - ALLERGY ASPIRIN: UPSET STOMACH/ITCHING GABAPENTIN: UPSET STOMACH - SIDE EFFECTS SURGICAL HISTORY TUBAL (ANAI) 1990 COLONOSCOPY ([facility]ENN) NEGATIVE - REPORTEDLY DUE IN 2016 REFUSES 02/201806/10/00 EGD REINDL- NORMAL ESOPHAGUS/STOMACH/DUODENUM, GERD, CONT DEXILANT. 06/19/13 CYST REMOVAL 2009 FAMILY HISTORY FATHER: 69 YRS, HYDROCEPHALUS; ALZHEIMER MOTHER: ALIVE 68 YRS, ( MON)DEPRESSION (ADMITTED), LOW BLOODSUGAR SIBLINGS: ALIVE, HALF BROTHERS (5) - ALL REPORTEDLY ARE ALCOHOLIC SON(S): ALIVE, SONS (2) - 1 WITH MENTAL RETARDATION, 1 WITH AUTISM 4 BROTHER(S) . 2 SON(S) - HEALTHY. PATIENT IS ADOPTED BUT SHE DID FIND HER BIOLOGICAL PARENTS ABOVE SO SHE KNOWS THEIR MEDICAL HISTORYSON HAD MELANOMA. SOCIAL HISTORY GENERAL: TOBACCO USE ARE YOU A:CURRENT SMOKER ARE YOU INTERESTED IN QUITTING?NOT READY TO QUIT COUNSELED THE PATIENT ON SMOKING EFFECTS, EDUCATION [id number]/16/2020 HOW MANY CIGARETTES A DAY DO YOU SMOKE?21- HOW SOON AFTER YOU WAKE UP DO YOU SMOKE YOUR FIRST CIGARETTE?WITHIN 5 MIN HOW OFTEN DO YOU SMOKE CIGARETTES?EVERY DAY PATIENT COUNSELED ON THE DANGERS OF TOBACCO USE AND URGED TO QUIT:06/01/2020 SMOKING CESSATION INFORMATION GIVEN08/28/2019 LATEX QUESTIONNAIRE LATEX ALLERGY : HAVE YOU EVER DEVELOPED ANY TYPE OF REACTION AFTER HANDLING LATEX PRODUCTS SUCH RUBBER GLOVES, CONDOMS, DIAPHRAGMS, BALLOONS, SOCKS, OR UNDERWEAR?NO LATEX ALLERGY : HAVE YOU EVER DEVELOPED ANY TYPE OF REACTION DURING OR AFTER DENTAL APPOINTMENT, VAGINAL/RECTAL EXAMINATION, SURGICAL PROCEDURE, OR ANY OTHER EXPOSURE?NO LATEX RISK : HAVE YOU EVER HAD ANY DIFFICULTY BREATHING OR HIVES AFTER EATING OR HANDLING ANY FRUITS, OR VEGETABLES; SUCH KIWI, BANANAS, STONE FRUITS, OR CHESTNUTSNO LATEX RISK : DO YOU HAVE A PREVIOUS PERSONAL HISTORY OF MORE THAN NINE SURGERIES, SPINA BIFIDA, OR REPEATED CATHERIZATIONS? NO LATEX RISK : ARE YOU FREQUENTLY EXPOSED TO LATEX PRODUCTS IN YOUR OCCUPATION?NO DATE ASKED : 06/01/2020 LUNG CANCER SCREENING SMOKING STATUS:CURRENT SMOKER BMI CARE GOAL FOLLOW-UP ABOVE NORMAL BMI FOLLOW-UPDIETARY MANAGEMENT EDUCATION, GUIDANCE, AND COUNSELING ALCOHOL SCREENING POINTS: 0, INTERPRETATION: NEGATIVE. RECREATIONAL DRUG USE DENIES. CAFFEINE CAFFEINE USE?YES 4/ DAY SEXUAL HX HAD SEX IN THE LAST 12 MONTHS (VAGINAL, ORAL, OR ANAL)?YES WITHMEN ONLY USE PROTECTION?NO LMP:2013 HAVE YOU EVER HAD AN STD?NO HIV / HEP-C SCREENING HIV TEST OFFERED TO PATIENT:YES DATE OFFERED:02/10/2018 TEST ACCEPTED:NO HEP-C TEST OFFERED TO PATIENT:YES DATE OFFERED:02/10/2018 REASON:OTHER (DOCUMENT IN NOTE) TESTED NEGATIVE IN THE PAST TEST ACCEPTED:NO REASON:PATIENT DECLINED BROCHURE PROVIDED TO PATIENTNO DECLINED, PAMPLET MORMON NO FAITH BELIEFS THAT WOULD IMPACT HEALTH CARE. LANGUAGE LANGUAGES SPOKEN:HUNGARIAN EDUCATION GRADE 10. LEARNING BARRIERS / SPECIAL NEEDS BARRIERS TO LEARNING?NO HEARING IMPAIRED?NO VISION IMPAIRED?NO COGNITIVELY IMPAIRED?NO READINESS TO LEARN?YES LEARNING PREFERENCES?NO LEARNING CAPABILITIES PRESENT?YES EMOTIONAL BARRIERS?NO SPECIAL DEVICES?NO DECATING MACHINE OPERATOR NEEDED?NO DOMESTIC VIOLENCE NONE. OCCUPATION: DISABILITY AND WORKS AT [employer]. 5PM-9PM. DIET: REGULAR, WORKING TO INCREASE THE FIBER IN HER DIET AND DECREASE RED MEAT. EXERCISE: NO REGULAR EXERCISE. MARITAL STATUS: . OTHERS AT HOME: BOYFRIEND X 4 YRS , CHILDREN , OF 2 CHILDRENS. PAIN CLINIC PFS, CLERGY, PUBLIC HEALTH REFERRALS HAS THE PATIENT BEEN EDUCATED REGARDING HIS/HER PLAN OF CARE?YES HAS THE PATIENT BEEN EDUCATED REGARDING PAIN, THE RISK FOR PAIN, THE IMPORTANCE OF EFFECTIVE PAIN MANAGEMENT, AND THE PAIN ASSESSMENT PROCESS?YES ADVANCE DIRECTIVE ADVANCE DIRECTIVE DISCUSSED WITH PATIENT:YES 06/01/2020 PT STATES SHE DOES NOT HAVE ANY ADVANCED DIRECTIVES AND SHE DECLINES INFOMATION ON HCP AT THIS TIME HOSPITALIZATION/MAJOR DIAGNOSTIC PROCEDURE CHILDBEARING A CHILD FOR ANEMIA VITAL SIGNS WT 154.8 LBS, HT 59.75 IN, BMI 30.48 INDEX, BP 160/85 MM HG, HR 73 /MIN, RR 18 /MIN, TEMP 96.9 F, OXYGEN SAT % 94%, SAFE IN ENV? (Y/N) YES, NA INITIALS [place] 08:501 0900 BRENT. Glenn GIRALDO RN. EXAMINATION GENERAL: THE PATIENT IS ALERT, ORIENTED TIMES THREE AND COOPERATIVE. LUNGS ARE CLEAR TO AUSCULTATION. HEART SHOWS REGULAR RHYTHM, NO MURMURS AND NO GALLOPS. ASSESSMENTS SPONDYLOSIS WITHOUT MYELOPATHY OR RADICULOPATHY, LUMBAR REGION - M47.816 (PRIMARY) SPONDYLOSIS WITHOUT MYELOPATHY OR RADICULOPATHY, LUMBOSACRAL REGION - M47.817 TREATMENT SPONDYLOSIS WITHOUT MYELOPATHY OR RADICULOPATHY, LUMBAR REGION [facility] FACET BLOCK (PAIN) JAIRON NASCIMENTOMIAN 06/06/2020 9:44:35 AM > STARTED 22 G LEFT AC 2ND ATTEMTP MEDICATION: VALIUM TAB 10MG ORALLY (DIAZEPAM)KULWINDER GIRALDO RN 06/06/2020 9:32:04 AM > LOT [id number]. EXPIRES 12/21. KEANNMIAN CHOW 06/06/2020 9:43:28 AM > VERIFIED KULWINDER GIRALDO RN 06/06/2020 9:45:49 AM > ADMINISTERED. OTHERS CLINICAL NOTES: PRE-PROCEDURE CALL COMPLETED 06/01/2020 1640 AD. PROCEDURES PAIN NURSING RECORD PROCEDURE IN ROOM 0955, PHYSICIAN IN ROOM 1009, START 1015, FINISH 1021, PHYSICIAN OUT OF ROOM 1023, OUT OF ROOM 1030, ECG NORMAL SINUS, PATIENT SHIELDED YES, SAFETY STRAP YES, PREP CHLOROPREP Lana GRAYSON RN, DRESSING TEGADERM DR. BHARDWAJ LOC: KULWINDER GIRALDO RN 06/06/2020 10:15:31 AM > , 1. ALERT, ORIENTED KULWINDER GIRALDO, PREMA 06/06/2020 10:30:29 AM > , 1. ALERT, ORIENTED, KULWINDER GIRALDO, RN 06/06/2020 10:55:01 AM > , 1. ALERT, ORIENTED RESP: KULWINDER GIRALDO, PREMA 06/06/2020 10:15:38 AM > , 1. REGULAR, NO DYSPNEA KULWINDER GIRALDO, PREMA 06/06/2020 10:30:06 AM > 1. REGULAR, NO DYSPNEA, KULWINDER GIRALDO, RN 06/06/2020 10:55:17 AM > , 1. REGULAR, NO DYSPNEA COLOR: KULWINDER GIRALDO, PREMA 06/06/2020 10:15:55 AM > , 1. PINK KULWINDER GIRALDO, RN 06/06/2020 10:30:47 AM > 1. PINK, KULWINDER GIRALDO, RN 06/06/2020 10:55:55 AM > , 1. PINK SKIN: KULWINDER GIRALDO, PREMA 06/06/2020 10:16:26 AM > , 1. WARM, DRY KULWINDER GIRALDO, RN 06/06/2020 10:30 AM > 1. WARM, DRY, KULWINDER GIRALDO RN 06/06/2020 10:55:29 AM > , 1. WARM, DRY POSITION: KULWINDER GIRALDO RN 06/06/2020 10:16:35 AM > , 1. PRONE KULWINDER GIRALDO RN 06/06/2020 10:28:19 AM > , 5. SITTING VITALS: KULWINDER GIRALDO RN 06/06/2020 10:05:25 AM > 71-16 94% 175/104 KULWINDER GIRALDO RN 06/06/2020 10:13:11 AM > 75-16 91% 158/101 KULWINDER GIRALDO RN 06/06/2020 10:18:19 AM > 94% KULWINDER GIRALDO RN 06/06/2020 10:28:59 AM > 75-16 93% 172/95 KULWINDER GIRALDO RN 06/06/2020 10:35:46 AM > 84-16 97% 159/99 NOTES KULWINDER GIRALDO RN 06/06/2020 10:10:52 AM > ELEVATED B/P NOTED AND REPORTED TO DR. BHARDWAJ. KULWINDER GIRALDO RN 06/06/2020 10:14:14 AM > O[address] BHARDWAJ. DISCHARGE: POST PAIN 2, DRESSING SITE DRY AND INTACT, IV DISCONTINUED, SITE CLEAR, CATHETER INTACT, GAIT STEADY, TEACHING COMPLETED, PATIENT ACKNOWLEDGES UNDERSTANDING YES, PATIENT DISCHARGED AT 1055 PN LUMBAR FACET BLOCK THERAPEUTIC PRE PROCEDURE DIAGNOSIS LUMBAR SPONDYLOSIS, LUMBOSACRAL SPONDYLOSIS POST PROCEDURE DIAGNOSIS LUMBAR SPONDYLOSIS, LUMBOSACRAL SPONDYLOSIS PROCEDURE BILATERAL L4-L5 AND BILATERAL L5-S1 LUMBAR FACET THERAPEUTIC BLOCK SURGEON DR. MARIIA BHARDWAJ FLEET DIRECTOR NONE ANESTHESIA LOCAL PRE PROCEDURE NOTE THE PATIENT HAS A HISTORY OF CHRONIC LOW BACK PAIN. I EVALUATED THE PATIENT AND REVIEWED THE CHART. I WENT OVER THE RISKS, ALTERNATIVES, AND BENEFITS ASSOCIATED WITH THIS PROCEDURE. THE PATIENT WOULD LIKE TO PROCEED AND GIVES CONSENT TO PERFORM THE PROCEDURE. THE PATIENT DENIES UNEXPLAINABLE WEIGHT LOSS, FEVER, CHILLS, OR NEW CHANGES IN URINARY OR BOWEL CONTROL. THE PATIENT IS COVID-19 NEGATIVE DESCRIPTION OF PROCEDURE THE PATIENT WAS BROUGHT TO THE PROCEDURE ROOM AND PLACED IN THE PRONE POSITION. THE LUMBOSACRAL AREA WAS CLEANED WITH CHLORAPREP SOLUTION AND DRAPED ASEPTICALLY. THE PROCEDURE WAS DONE UNDER STERILE CONDITIONS. A TIMEOUT WAS PERFORMED WHERE LATERALITY AND THE SITE OF THE PROCEDURE WERE CHECKED AND CONFIRMED WITH EVERYONE IN THE ROOM. UNDER FLUOROSCOPIC GUIDANCE, THE TARGET POINT WAS SELECTED AT THE RIGHT AND LEFT L4-L5 AND RIGHT AND LEFT L5-S1 FACET JOINTS. TARGET POINT WAS SELECTED AFTER LATERAL ROTATION AND TILT OF THE MAGNIFIER OF THE C-ARM. I CONFIRMED AGAIN WITH EVERYONE IN THE ROOM THE LATERALITY OF THE TARGET AT 1013. LIDOCAINE 0.5% WAS USED TO NUMB THE SKIN AND THE SUBCUTANEOUS TISSUE BELOW IT. SPINAL NEEDLES, 22-GAUGE, WERE ADVANCED UNDER FLUOROSCOPIC GUIDANCE AND FOLLOWING PATIENT FEEDBACK UNTIL THE TARGETS WERE TOUCHED. THE POSITION OF THE NEEDLES WAS VERIFIED WITH AP AND LATERAL VIEWS. AFTER PROPER POSITION OF THE NEEDLES WAS ACHIEVED, ISOVUE-M DYE 30%, 0.1 ML, WAS INJECTED SHOWING ADEQUATE SPREAD OF THE DYE. KENALOG 20 MG WAS INJECTED AT EACH SITE. THEN, A SOLUTION OF 1.0 ML OF BUPIVACAINE 0.125% OF WAS USED TO FLUSH EACH SITE. THE MEDICATION WAS VERIFIED WITH THE NURSE. THERE WAS NO EVIDENCE OF BLOOD, PARESTHESIA OR CEREBROSPINAL FLUID DURING THE PROCEDURE. THE PATIENT WAS SENT TO THE RECOVERY ROOM. THE PATIENT WAS MOVING THE EXTREMITIES AND DOING WELL. THERE WERE NO COMPLICATIONS DURING THE PROCEDURE. ESTIMATED BLOOD LOSS WAS LESS THAN 5 ML. FLUOROSCOPY TIME WAS 15 SECONDS POST PROCEDURE NOTE THE PATIENT WILL BE SEEN IN A FOLLOW UP IN THE NEXT FEW WEEKS. I AM LOOKING FOR LONG LASTING RELIEF FOR THE PATIENT WITH THIS INTERVENTION. INSTRUCTIONS WERE GIVEN, QUESTIONS WERE ANSWERED, AND THE PATIENT EXPRESSED UNDERSTANDING AND AGREES WITH THE PLAN. I, ROBBIE LAGUNA, DOCUMENTED THE ABOVE INFORMATION ACTING A SCRIBE FOR DR. BHARDWAJ. I HAVE REVIEWED THE ABOVE DOCUMENT, WRITTEN BY ROBBIE LAGUNA, DIRECTOR OF RESERVATIONS, AND I VERIFY THAT IT IS ACCURATE PROCEDURE CODES 21046 INJ PARAVERT F JNT L/S 2 LEV, MODIFIERS: 50 14156 INJ PARAVERT F JNT L/S 1 LEV, MODIFIERS: 50 DISPOSITION & COMMUNICATION FOLLOW UP FOLLOW UP IN 2 WEEKS (REASON: POST BILATERAL LUMBAR THERAPEUTIC FACET BLCOK L4-L5, L5-S1) ELECTRONICALLY SIGNED BY MARIIA BHARDWAJ MD, MD ON 06/07/2020 AT 09:26 AM EST DISCLAIMER : THIS IS A VISIT SUMMARY EXTRACTED FROM THE [employer] CHART. IT IS NOT A COPY OF THE [employer] PROGRESS NOTE. MISA
== END ==
LOC: M PAIN 08:30
PROVIDERS: ATTEND Anesthesiology
DX: M47.816 Spondylosis without myelopathy or radiculopathy, lumbar region (principal); M47.817 Spondylosis without myelopathy or radiculopathy, lumbosacral region; G47.30 Sleep apnea, unspecified; G25.81 Restless legs syndrome; M79.7 Fibromyalgia; F17.210 Nicotine dependence, cigarettes, uncomplicated; Z88.5 Allergy status to narcotic agent; Z88.6 Allergy status to analgesic agent; Z88.8 Allergy status to other drugs, medicaments and biological substances; Z79.899 Other long term (current) drug therapy
CPT/HCPCS: 64493; 64494; J3301; Q9967

== ENCOUNTER → 2020-06-20 | Outpatient (CLI) | payer MEDICARE ==
[~2020-06-20] MED LIST changes: -BUPIVACAINE HCL 0.25% 30ML VIAL As Ordered ONE; -ISOVUE-M 300 61% 15ML VIAL As Ordered ONE; -LIDOCAINE 1% SDV 30ML VIAL As Ordered ONE; +MONT10TA10; -MONT5TAB2; -SIME40TA PO; +SIME80CH6 PO; -TRIAMCINOLONE ACETONIDE SUSP 40 MG/ML VIAL (J3301) As Ordered ONE; -diazePAM 5MG TABLET As Ordered ONE
--- NOTE | 2020-06-22 06:30 | ECWPNPC ---
PATIENT NAME: MARGARET LANIER : 1965 GENDER: FEMALE VISIT DATE: 06/20/2020 DISCHARGE DATE: 06/20/20950 VISIT LOCKED DATE TIME: PHYSICIAN: CRISTIANA LUEVANO PHYSICIAN PAGER NO: ACTIVE RESOURCE: CRISTIANA LUEVANO REASON FOR APPOINTMENT 1. POST BILATERAL THERAPEUTIC LUMBAR FACET BLOCK L4-L5 L5-S1 HISTORY OF PRESENT ILLNESS GENERAL: - 54-YEAR-OLD FEMALE IN FOR POST BILATERAL THERAPEUTIC FACET BLOCK FOLLOW-UP. PATIENT FEELS THE PROCEDURE WAS SUCCESSFUL OVERALL RATING HER PAIN PREPROCEDURE AT AN 8-10 OUT OF 10 AND POSTPROCEDURE AT A 0-2 OUT OF 10. SHE FURTHER STATES THE PROCEDURE CONTINUES TO HELP HER TODAY. SHE RATES HER PAIN CURRENTLY AT A 1 OUT OF 10 AND DESCRIBES IT ACHING, AND A DULL PRESSURE. FALL RISK SCREENING: SCREENING :ONE FALL WITHOUT INJURY IN THE PAST YEAR PATIENT SLIPPED ON ICE AND FELL - STATES NO INJURY PAIN SCREENING: PATIENT HAS A COMPLAINT OF ACUTE OR CHRONIC PAIN :YES LOCATION OF PAIN:MID BACK INTENSITY OF PAIN (SCALE OF 1 TO 10):1 WHAT DOES YOUR PAIN FEEL LIKE:ACHING, OTHER DULL, PRESSURE DURATION:CONTINOUS PAIN IS INCREASED BY:ACTIVITIES, OTHERS BENDING, LIFTING, TWISTING PAIN IS DECREASED BY:OTHERS HOT SHOWERS, LAYING DOWN, INJECTION NURSING NOTE: -. PAIN CENTER INTAKE QUESTIONS: DO YOU HAVE A HISTORY OF MRSA? :NO DO YOU TAKE A BLOOD THINNERS? :NO DO YOU HAVE ANY BLEEDING DISORDERS? :NO ANY NEW NUMBNESS OR WEAKNESS IN YOUR LEGS OR ARMS? :NO ANY PACEMAKER,DEFIBRILLATOR, OR DORSAL COLUMN STIMULATOR? :NO DO YOU HAVE ANY RASHES OR OPEN SORES? :NO ARE YOU ALLERGIC TO IV DYE? :NO ARE YOU DIABETIC? :NO ANY NEW PROBLEMS WITH YOUR MEDICATIONS? :NO HAVE YOU RECEIVED A VACCINE IN THE PAST 30 DAYS? :NO DO YOU PLAN TO RECEIVE A VACCINE IN THE NEXT 21 DAYS? :NO DO YOU NEED ANY PRESCRIPTION? :NO DO YOU TAKE ANY IMMUNOSUPPRESSIVE MEDICATIONS? :NO IS THERE A CHANCE YOU COULD BE ? :NO ARE YOU BREAST FEEDING? :NO CURRENT MEDICATIONS TAKING ACETAMINOPHEN 500 MG CAPSULE 1 CAPSULE NEEDED ORALLY EVERY 6 HRS, NOTES: PRN TAKING ALBUTEROL SULFATE HFA 108 (90 BASE) MCG/ACT AEROSOL SOLUTION 2 PUFFS NEEDED FOR COUGH INHALATION EVERY 4 HRS TAKING IBUPROFEN 200 MG TABLET 1 TABLET WITH FOOD OR MILK NEEDED ORALLY FOUR TIMES DAILY NEEDED, NOTES: PRN TAKING MAY USE VICKS NASAL INHALER 1 DOSE DAILY NEEDED TAKING SIMETHICONE 80 MG TABLET 1 TABLET ORALLY THREE TIMES DAILY NEEDED TAKING LISINOPRIL 20 MG TABLET 1 TABLET ORALLY BID NOT-TAKING OMEPRAZOLE 40 MG CAPSULE DELAYED RELEASE 1 CAPSULE 30 MINUTES BEFORE MORNING MEAL ORALLY ONCE A DAY MEDICATION LIST REVIEWED AND RECONCILED WITH THE PATIENT PAST MEDICAL HISTORY HYPERTENSION CHRONIC PAIN SYNDROME RESTLESS LEG SYNDROME HYPERLIPIDEMIA. LDL 08/14 128 (ASCVD RISK 6.1%) VITAMIN D DEFICIENCY 05/15 GASTRIC EMPTYING STUDY-UNREMARKABLE UNSPECIFIED ESSENTIAL HYPERTENSION 12/12 MRI L SPINE DIFFUSE DISC BULGE L3-4 MIN THEAL SAC COMPRESSION, MINIMAL CENTRAL CANAL L4-5, L5-S1 SECONDARY TO THE DISC BULGE LIGAMENTOUS AND FACET HYPERTROPHY, COMPRESSION OF L4 NERVE IN THE NEURAL FORAMEN 616, CERVICAL SPINE X-RAY, C5-6 DEGENERATIVE DISC DISEASE WITH LEFT FORAMINAL ENCROACHMENT AT THIS LEVEL. FACET ARTICULATIONS DEMONSTRATE MILD OSTEOARTHRITIS, SLIGHTLY PROGRESSED FROM APRIL 2008 03/26/2016 PFTS AT [facility], POSITIVE METHACHOLINE CHALLENGE STUDY. 04/19/2013 SLEEP STUDY AT [facility] SLEEP DISORDER CENTER, OBSTRUCTIVE SLEEP APNEA SYNDROME, NIGHTLY USE OF PRESSURE THERAPY AT 5 CM'S OF WATER FIBROMYALGIA SPRAIN LEFT ELBOW LOW BACK PAIN ALLERGIES COZAAR: RASH - ALLERGY HYDROCODONE-ACETAMINOPHEN: RASH - ALLERGY CODEINE SULFATE: RASH - ALLERGY ASPIRIN: UPSET STOMACH/ITCHING GABAPENTIN: UPSET STOMACH - SIDE EFFECTS SURGICAL HISTORY TUBAL (ANAI) 1989 COLONOSCOPY ([facility]) NEGATIVE - REPORTEDLY DUE IN 2015 REFUSES 02/201806/10/00 EGD REINDL- NORMAL ESOPHAGUS/STOMACH/DUODENUM, GERD, CONT DEXILANT. 06/19/13 CYST REMOVAL 2009 FAMILY HISTORY FATHER: 69 YRS, HYDROCEPHALUS; ALZHEIMER MOTHER: ALIVE 68 YRS, ( MON)DEPRESSION (ADMITTED), LOW BLOODSUGAR SIBLINGS: ALIVE, HALF BROTHERS (5) - ALL REPORTEDLY ARE ALCOHOLIC SON(S): ALIVE, SONS (2) - 1 WITH MENTAL RETARDATION, 1 WITH AUTISM 4 BROTHER(S) . 2 SON(S) - HEALTHY. PATIENT IS ADOPTED BUT SHE DID FIND HER BIOLOGICAL PARENTS ABOVE SO SHE KNOWS THEIR MEDICAL HISTORYSON HAD MELANOMA. SOCIAL HISTORY GENERAL: TOBACCO USE ARE YOU A:CURRENT SMOKER ARE YOU INTERESTED IN QUITTING?NOT READY TO QUIT COUNSELED THE PATIENT ON SMOKING EFFECTS, EDUCATION [id number]/18/2021 HOW MANY CIGARETTES A DAY DO YOU SMOKE?21-30 HOW SOON AFTER YOU WAKE UP DO YOU SMOKE YOUR FIRST CIGARETTE?WITHIN 5 MIN HOW OFTEN DO YOU SMOKE CIGARETTES?EVERY DAY PATIENT COUNSELED ON THE DANGERS OF TOBACCO USE AND URGED TO QUIT:06/01/2020 SMOKING CESSATION INFORMATION GIVEN08/28/2019 LATEX QUESTIONNAIRE LATEX ALLERGY : HAVE YOU EVER DEVELOPED ANY TYPE OF REACTION AFTER HANDLING LATEX PRODUCTS SUCH RUBBER GLOVES, CONDOMS, DIAPHRAGMS, BALLOONS, SOCKS, OR UNDERWEAR?NO LATEX ALLERGY : HAVE YOU EVER DEVELOPED ANY TYPE OF REACTION DURING OR AFTER DENTAL APPOINTMENT, VAGINAL/RECTAL EXAMINATION, SURGICAL PROCEDURE, OR ANY OTHER EXPOSURE?NO LATEX RISK : HAVE YOU EVER HAD ANY DIFFICULTY BREATHING OR HIVES AFTER EATING OR HANDLING ANY FRUITS, OR VEGETABLES; SUCH KIWI, BANANAS, STONE FRUITS, OR CHESTNUTSNO LATEX RISK : DO YOU HAVE A PREVIOUS PERSONAL HISTORY OF MORE THAN NINE SURGERIES, SPINA BIFIDA, OR REPEATED CATHERIZATIONS? NO LATEX RISK : ARE YOU FREQUENTLY EXPOSED TO LATEX PRODUCTS IN YOUR OCCUPATION?NO DATE ASKED : 06/20/2020 LUNG CANCER SCREENING SMOKING STATUS:CURRENT SMOKER BMI CARE GOAL FOLLOW-UP ABOVE NORMAL BMI FOLLOW-UPDIETARY MANAGEMENT EDUCATION, GUIDANCE, AND COUNSELING ALCOHOL SCREENING POINTS: 0, INTERPRETATION: NEGATIVE. RECREATIONAL DRUG USE DENIES. CAFFEINE CAFFEINE USE?YES 4/ DAY SEXUAL HX HAD SEX IN THE LAST 12 MONTHS (VAGINAL, ORAL, OR ANAL)?YES WITHMEN ONLY USE PROTECTION?NO LMP:2013 HAVE YOU EVER HAD AN STD?NO HIV / HEP-C SCREENING HIV TEST OFFERED TO PATIENT:YES DATE OFFERED:02/10/2018 TEST ACCEPTED:NO HEP-C TEST OFFERED TO PATIENT:YES DATE OFFERED:02/10/2018 REASON:OTHER (DOCUMENT IN NOTE) TESTED NEGATIVE IN THE PAST TEST ACCEPTED:NO REASON:PATIENT DECLINED BROCHURE PROVIDED TO PATIENTNO DECLINED, PAMPLET YARSANI NO TENRIISM BELIEFS THAT WOULD IMPACT HEALTH CARE. LANGUAGE LANGUAGES SPOKEN:YORUBA EDUCATION GRADE 10. LEARNING BARRIERS / SPECIAL NEEDS CHANGE FROM LAST VISIT?NO BARRIERS TO LEARNING?NO HEARING IMPAIRED?NO VISION IMPAIRED?NO COGNITIVELY IMPAIRED?NO READINESS TO LEARN?YES LEARNING PREFERENCES?NO LEARNING CAPABILITIES PRESENT?YES EMOTIONAL BARRIERS?NO SPECIAL DEVICES?NO CUSTOMS COLLECTOR NEEDED?NO OCCUPATION: DISABILITY AND WORKS AT [employer]. 5PM-9PM. DIET: REGULAR, WORKING TO INCREASE THE FIBER IN HER DIET AND DECREASE RED MEAT. EXERCISE: NO REGULAR EXERCISE. MARITAL STATUS: . OTHERS AT HOME: BOYFRIEND X 4 YRS , CHILDREN , OF 2 CHILDRENS. HOSPITALIZATION/MAJOR DIAGNOSTIC PROCEDURE CHILDBEARING A CHILD FOR ANEMIA REVIEW OF SYSTEMS CONSTITUTIONAL: ANY RECENT FEVER NO . CHILLS NO . WEIGHT CHANGE OF UNKNOWN REASONS NO . GASTROENTEROLOGY: NEW UNEXPLAINABLE CHANGES IN BOWEL CONTROL NO . CONSTIPATION NO . GENITOURINARY: ANY NEW CHANGE IN BLADDER CONTROL? NO . NEUROLOGY: NEW ONSET DIZZINESS OR NEUROLOGICAL CHANGES NOT MENTIONED NO . NEW NUMBNESS OR PAIN PATTERNS NOT MENTIONED AND PERTINENT TO TODAY'S VISIT NO . CARDIOLOGY: NEW CHEST PRESSURE NO . NEW CHEST PAIN NO . RESPIRATORY: UNEXPLAINABLE COUGH NO . NEW SHORTNESS OF BREATH NO . VITAL SIGNS WT 157 LBS, HT 59.75 IN, BMI 30.92 INDEX, BP 139/104 MM HG, REPEAT BP 138/92 MANUAL, HR 94 /MIN, RR 18 /MIN, TEMP 97.7 F, OXYGEN SAT % 97%, SAFE IN ENV? (Y/N) YES, REVIEWED BY: JSJ. SUE RNDISCUSSED ELEVATED BP WITH PATIENT. STATES IT'S BEEN REALLY HIGH SINCE HER LAST APPOINTMENT HERE. STATES SHE DID DISCUSS THIS WITH HER PCP AND THEY INCREASED HER BP MEDICATION. CRISTIANA CHLOÉ NOTIFIED. John ROGERS RN. EXAMINATION GENERAL EXAMINATION: GENERALNO ACUTE DISTRESS, WELL NOURISHED AND HYDRATED. PSYCHAPPROPRIATE MOOD AND AFFECT . LUNGS:CLEAR TO AUSCULTATION BILATERALLY, NO WHEEZES, RHONCHI, RALES. HEART:NO MURMURS, REGULAR RATE AND RHYTHM. 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 GIVEN PRESENTING SYMPTOMS RECOMMEND FOLLOW-UP IN 3 MONTHS. PATIENT HAS EXPRESSED UNDERSTANDING OF AND WAS IN AGREEMENT WITH TREATMENT PLAN. GIVEN TIME TO ASK QUESTIONS AND EXPRESS CONCERNS. PROCEDURE CODES FA211 ESTABILISHED PATIENT [facility] CHARGE DISPOSITION & COMMUNICATION FOLLOW UP 3 MONTHS (REASON: BACK PAIN) ELECTRONICALLY SIGNED BY CYNDI BRENNAN ON 06/21/2020 AT 08:39 AM EST DISCLAIMER : THIS IS A VISIT SUMMARY EXTRACTED FROM THE [employer] CHART. IT IS NOT A COPY OF THE [employer] PROGRESS NOTE. MISA
== END ==
LOC: M PAIN 09:30
PROVIDERS: ATTEND Family Medicine
DX: G89.29 Other chronic pain (principal); M47.817 Spondylosis without myelopathy or radiculopathy, lumbosacral region; I10 Essential (primary) hypertension; G25.81 Restless legs syndrome; E78.5 Hyperlipidemia, unspecified; E55.9 Vitamin D deficiency, unspecified; M79.7 Fibromyalgia; F17.210 Nicotine dependence, cigarettes, uncomplicated; Z79.899 Other long term (current) drug therapy; Z88.5 Allergy status to narcotic agent; Z88.6 Allergy status to analgesic agent; Z88.8 Allergy status to other drugs, medicaments and biological substances

== ENCOUNTER 2020-08-13 14:15 | Emergency (ER) | payer MEDICARE ==
[~2020-08-13] VITALS: Ht 149.9 cm; Wt 70.2 kg
[2020-08-13] MEDS ORDERED: ACETAMINOPHEN 325 MG TAB PO ONE (15:10)
[2020-08-13] MEDS ORDERED: KETOROLAC 30 MG/ML 1ML VIAL IM ONE (15:10)
[2020-08-13] MEDS ORDERED: KETO10TAB PO (15:44)
[2020-08-13 15:51] VITALS: BP 126/84
== END 2020-08-13 15:52 | disposition home or self-care (01) ==
LOC: M ED 14:15
DX: M54.42 Lumbago with sciatica, left side (principal); S39.012A Strain of muscle, fascia and tendon of lower back, initial encounter; X50.9XXA Other and unspecified overexertion or strenuous movements or postures, initial encounter; Y92.092 Bedroom in other non-institutional residence as the place of occurrence of the external cause; M51.37 Other intervertebral disc degeneration, lumbosacral region; I10 Essential (primary) hypertension; Z88.5 Allergy status to narcotic agent; Z88.8 Allergy status to other drugs, medicaments and biological substances; Z88.6 Allergy status to analgesic agent; Z79.899 Other long term (current) drug therapy
CPT/HCPCS: 96372; 99283; J1885

== ENCOUNTER 2020-08-21 18:26 | Emergency (ER) | payer MEDICARE, MEDICAID ==
[~2020-08-21] VITALS: Ht 149.9 cm; Wt 68.2 kg
[2020-08-21 19:52] VITALS: BP 137/94
== END 2020-08-21 19:54 | disposition home or self-care (01) ==
LOC: M ED 18:26
DX: M54.32 Sciatica, left side (principal); M79.7 Fibromyalgia; K21.9 Gastro-esophageal reflux disease without esophagitis; F17.200 Nicotine dependence, unspecified, uncomplicated; Z88.6 Allergy status to analgesic agent; Z88.8 Allergy status to other drugs, medicaments and biological substances

== ENCOUNTER → 2020-09-01 | Outpatient (CLI) | payer MEDICARE, MEDICAID ==
--- NOTE | 2020-09-03 00:03 | ECWPNPC ---
PATIENT NAME: MARGARET LANIER : 1965 GENDER: FEMALE VISIT DATE: 09/01/2020 DISCHARGE DATE: 09/01/20 1010 VISIT LOCKED DATE TIME: PHYSICIAN: CRISTIANA LUEVANO PHYSICIAN PAGER NO: ACTIVE RESOURCE: CRISTIANA LUEVANO REASON FOR APPOINTMENT 1. INCREASED PAIN/HAS BEEN TO ER AND PCP 2X HISTORY OF PRESENT ILLNESS GENERAL: - 55-YEAR-OLD FEMALE IN FOR CHRONIC PAIN FOLLOW-UP. PATIENT WAS SEEN IN THE ER RECENTLY FOR INCREASED PAIN BUT ADMITS TODAY THAT THIS HAS SUBSIDED. SHE RATES HER PAIN CURRENTLY AT A 3 OUT OF 10 AND DESCRIBES IT ACHING, CONTINUOUS, GRABBING, AND PRESSURE. FALL RISK SCREENING: SCREENING : NO FALLS REPORTED IN THE LAST YEAR. PAIN SCREENING: PATIENT HAS A COMPLAINT OF ACUTE OR CHRONIC PAIN :YES LOCATION OF PAIN:LOW BACK, OTHER: BUTTOCKS INTENSITY OF PAIN (SCALE OF 1 TO 10):3 WHAT DOES YOUR PAIN FEEL LIKE:ACHING, CONTINOUS, OTHER GRABBING, PRESSURE DURATION:CONTINOUS, AWAKENS FROM SLEEP PAIN IS INCREASED BY:ACTIVITIES, PROLONGED STANDING SITTING TOO LONG PAIN IS DECREASED BY:OTHERS WHIRLPOOL TUB NURSING NOTE: -. PAIN CENTER INTAKE QUESTIONS: DO YOU HAVE A HISTORY OF MRSA? :NO DO YOU TAKE A BLOOD THINNERS? :NO DO YOU HAVE ANY BLEEDING DISORDERS? :NO ANY NEW NUMBNESS OR WEAKNESS IN YOUR LEGS OR ARMS? :NO ANY PACEMAKER,DEFIBRILLATOR, OR DORSAL COLUMN STIMULATOR? :NO DO YOU HAVE ANY RASHES OR OPEN SORES? :NO ARE YOU ALLERGIC TO IV DYE? :NO ARE YOU DIABETIC? :YES BORDERLINE DIABETIC ANY NEW PROBLEMS WITH YOUR MEDICATIONS? :NO HAVE YOU RECEIVED A VACCINE IN THE PAST 30 DAYS? :YES IF SO WHAT VACCINE AND WHEN? FIRST COVID VACCINATION 08/15/2020 DO YOU PLAN TO RECEIVE A VACCINE IN THE NEXT 21 DAYS? :YES IF SO WHAT VACCINE AND WHEN? SECOND COVID VACCINATION SCHEDULED FOR 09/15/2020 DO YOU NEED ANY PRESCRIPTION? :NO DO YOU TAKE ANY IMMUNOSUPPRESSIVE MEDICATIONS? :NO DO YOU HAVE ANY KIDNEY OR LIVER DISEASE? :NO IS THERE A CHANCE YOU COULD BE ? :NO ARE YOU BREAST FEEDING? :NO CURRENT MEDICATIONS TAKING OMEPRAZOLE 40 MG CAPSULE DELAYED RELEASE 1 CAPSULE 30 MINUTES BEFORE MORNING MEAL ORALLY ONCE A DAY TAKING LISINOPRIL 20 MG TABLET 1 TABLET ORALLY BID TAKING ACETAMINOPHEN 500 MG CAPSULE 1 CAPSULE NEEDED ORALLY EVERY 6 HRS, NOTES: PRN TAKING IBUPROFEN 200 MG TABLET 1 TABLET WITH FOOD OR MILK NEEDED ORALLY FOUR TIMES DAILY NEEDED, NOTES: PRN TAKING MAY USE VICKS NASAL INHALER 1 DOSE DAILY NEEDED TAKING ALBUTEROL SULFATE HFA 108 (90 BASE) MCG/ACT AEROSOL SOLUTION 2 PUFFS NEEDED FOR COUGH INHALATION EVERY 4 HRS NOT-TAKING DULOXETINE HCL 30 MG CAPSULE DELAYED RELEASE PARTICLES 1 CAPSULE ORALLY ONCE A DAY X 1 WEEK THEN INCREASE TO BID NOT-TAKING TIZANIDINE HCL 2 MG TABLET 1 TABLET ORALLY Q HS PRN BACK SPASM MEDICATION LIST REVIEWED AND RECONCILED WITH THE PATIENT PAST MEDICAL HISTORY HYPERTENSION CHRONIC PAIN SYNDROME RESTLESS LEG SYNDROME HYPERLIPIDEMIA. LDL 08/14 128 (ASCVD RISK 6.1%) VITAMIN D DEFICIENCY 05/15 GASTRIC EMPTYING STUDY-UNREMARKABLE UNSPECIFIED ESSENTIAL HYPERTENSION 12/12 MRI L SPINE DIFFUSE DISC BULGE L3-4 MIN THEAL SAC COMPRESSION, MINIMAL CENTRAL CANAL L4-5, L5-S1 SECONDARY TO THE DISC BULGE LIGAMENTOUS AND FACET HYPERTROPHY, COMPRESSION OF L4 NERVE IN THE NEURAL FORAMEN 616, CERVICAL SPINE X-RAY, C5-6 DEGENERATIVE DISC DISEASE WITH LEFT FORAMINAL ENCROACHMENT AT THIS LEVEL. FACET ARTICULATIONS DEMONSTRATE MILD OSTEOARTHRITIS, SLIGHTLY PROGRESSED FROM APRIL 2008 03/26/2016 PFTS AT [facility], POSITIVE METHACHOLINE CHALLENGE STUDY. 04/19/2013 SLEEP STUDY AT [facility] SLEEP DISORDER CENTER, OBSTRUCTIVE SLEEP APNEA SYNDROME, NIGHTLY USE OF PRESSURE THERAPY AT 5 CM'S OF WATER FIBROMYALGIA SPRAIN LEFT ELBOW LOW BACK PAIN 08/15/20 REFUSES MAMMO, PAP, COLONOSCOPIES ALLERGIES COZAAR: RASH - ALLERGY HYDROCODONE-ACETAMINOPHEN: RASH - ALLERGY CODEINE SULFATE: RASH - ALLERGY ASPIRIN: UPSET STOMACH/ITCHING GABAPENTIN: UPSET STOMACH - SIDE EFFECTS SOCIAL HISTORY GENERAL: TOBACCO USE ARE YOU A:CURRENT SMOKER HOW OFTEN DO YOU SMOKE CIGARETTES?EVERY DAY HOW SOON AFTER YOU WAKE UP DO YOU SMOKE YOUR FIRST CIGARETTE?WITHIN 5 MIN HOW MANY CIGARETTES A DAY DO YOU SMOKE?11-20 1 PPD ARE YOU INTERESTED IN QUITTING?NOT READY TO QUIT PATIENT COUNSELED ON THE DANGERS OF TOBACCO USE AND URGED TO QUIT:06/01/2020 COUNSELED THE PATIENT ON SMOKING EFFECTS, EDUCATION [id number]/18/2021 SMOKING CESSATION INFORMATION GIVEN08/28/2019 HAVE YOU HAD A PNEUMOVAX VACCINE?YES LATEX QUESTIONNAIRE LATEX ALLERGY : HAVE YOU EVER DEVELOPED ANY TYPE OF REACTION AFTER HANDLING LATEX PRODUCTS SUCH RUBBER GLOVES, CONDOMS, DIAPHRAGMS, BALLOONS, SOCKS, OR UNDERWEAR?NO LATEX ALLERGY : HAVE YOU EVER DEVELOPED ANY TYPE OF REACTION DURING OR AFTER DENTAL APPOINTMENT, VAGINAL/RECTAL EXAMINATION, SURGICAL PROCEDURE, OR ANY OTHER EXPOSURE?NO LATEX RISK : HAVE YOU EVER HAD ANY DIFFICULTY BREATHING OR HIVES AFTER EATING OR HANDLING ANY FRUITS, OR VEGETABLES; SUCH KIWI, BANANAS, STONE FRUITS, OR CHESTNUTSNO LATEX RISK : DO YOU HAVE A PREVIOUS PERSONAL HISTORY OF MORE THAN NINE SURGERIES, SPINA BIFIDA, OR REPEATED CATHERIZATIONS? NO LATEX RISK : ARE YOU FREQUENTLY EXPOSED TO LATEX PRODUCTS IN YOUR OCCUPATION?NO DATE ASKED : 09/01/2020 ALCOHOL USE: NO. LUNG CANCER SCREENING SMOKING STATUS:CURRENT SMOKER BMI CARE GOAL FOLLOW-UP ABOVE NORMAL BMI FOLLOW-UPDIETARY MANAGEMENT EDUCATION, GUIDANCE, AND COUNSELING ALCOHOL SCREENING POINTS: 0, INTERPRETATION: NEGATIVE. RECREATIONAL DRUG USE DRUG USE?NO CAFFEINE CAFFEINE USE?YES 4/ DAY SEXUAL HX HAD SEX IN THE LAST 12 MONTHS (VAGINAL, ORAL, OR ANAL)?YES WITHMEN ONLY USE PROTECTION?NO LMP:2013 HAVE YOU EVER HAD AN STD?NO HIV / HEP-C SCREENING HIV TEST OFFERED TO PATIENT:YES DATE OFFERED:02/10/2018 TEST ACCEPTED:NO HEP-C TEST OFFERED TO PATIENT:YES DATE OFFERED:02/10/2018 REASON:OTHER (DOCUMENT IN NOTE) TESTED NEGATIVE IN THE PAST TEST ACCEPTED:NO REASON:PATIENT DECLINED BROCHURE PROVIDED TO PATIENTNO DECLINED, PAMPLET SCIENTOLOGIST NO NONDENOMINATIONAL BELIEFS THAT WOULD IMPACT HEALTH CARE. LANGUAGE LANGUAGES SPOKEN:SCOTTISH EDUCATION GRADE 10. LEARNING BARRIERS / SPECIAL NEEDS CHANGE FROM LAST VISIT?NO BARRIERS TO LEARNING?NO HEARING IMPAIRED?NO VISION IMPAIRED?NO COGNITIVELY IMPAIRED?NO READINESS TO LEARN?YES LEARNING PREFERENCES?NO LEARNING CAPABILITIES PRESENT?YES EMOTIONAL BARRIERS?NO SPECIAL DEVICES?NO TIRE INSPECTOR NEEDED?NO OCCUPATION: DISABILITY AND WORKS AT [employer]. 5PM-9PM. DIET: REGULAR, WORKING TO INCREASE THE FIBER IN HER DIET AND DECREASE RED MEAT. EXERCISE: NO REGULAR EXERCISE. MARITAL STATUS: . OTHERS AT HOME: BOYFRIEND X 7 YRS , CHILDREN , OF 2 CHILDRENS. REVIEW OF SYSTEMS CONSTITUTIONAL: ANY RECENT FEVER NO . CHILLS NO . WEIGHT CHANGE OF UNKNOWN REASONS NO . GASTROENTEROLOGY: NEW UNEXPLAINABLE CHANGES IN BOWEL CONTROL NO . CONSTIPATION NO . GENITOURINARY: ANY NEW CHANGE IN BLADDER CONTROL? NO . NEUROLOGY: NEW ONSET DIZZINESS OR NEUROLOGICAL CHANGES NOT MENTIONED NO . NEW NUMBNESS OR PAIN PATTERNS NOT MENTIONED AND PERTINENT TO TODAY'S VISIT NO . CARDIOLOGY: NEW CHEST PRESSURE NO . PATIENT DENIES NO . RESPIRATORY: UNEXPLAINABLE COUGH NO . NEW SHORTNESS OF BREATH NO . VITAL SIGNS WT 154.6 LBS, HT 59.75 IN, BMI 30.44 INDEX, BP 150/93 MM HG, HR 70 /MIN, RR 18 /MIN, TEMP 97.2 F, OXYGEN SAT % 97%, SAFE IN ENV? (Y/N) YES, REVIEWED BY: ALFREDITO DOUGLASS MA. EXAMINATION GENERAL EXAMINATION: GENERALNO ACUTE DISTRESS, WELL NOURISHED AND HYDRATED. PSYCHAPPROPRIATE MOOD AND AFFECT . LUNGS:CLEAR TO AUSCULTATION BILATERALLY, NO WHEEZES, RHONCHI, RALES. HEART:NO MURMURS, REGULAR RATE AND RHYTHM. 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 GIVEN PRESENTING SYMPTOMS RECOMMEND FOLLOW-UP IN 2 MONTHS. PATIENT HAS EXPRESSED UNDERSTANDING OF AND WAS IN AGREEMENT WITH TREATMENT PLAN. GIVEN TIME TO ASK QUESTIONS AND EXPRESS CONCERNS. PROCEDURE CODES FA211 ESTABILISHED PATIENT [facility] FACILITY CHARGE DISPOSITION & COMMUNICATION FOLLOW UP 2 MONTHS (REASON: LOW BACK PAIN) ELECTRONICALLY SIGNED BY CYNDI BRENNAN ON 09/02/2020 AT 08:45 AM EDT ADDENDUM: 09/02/2020 08:51 AM CRISTIANA LUEVANO > PATIENT GIVEN EDUCATION REGARDING BACK EXERCISES TO PERFORM AT HOME DISCLAIMER : THIS IS A VISIT SUMMARY EXTRACTED FROM THE [employer] CHART. IT IS NOT A COPY OF THE [employer] PROGRESS NOTE. MISA
== END ==
LOC: M PAIN 09:30
PROVIDERS: ATTEND Family Medicine
DX: M47.817 Spondylosis without myelopathy or radiculopathy, lumbosacral region (principal); I10 Essential (primary) hypertension; G89.4 Chronic pain syndrome; G25.81 Restless legs syndrome; E78.5 Hyperlipidemia, unspecified; E55.9 Vitamin D deficiency, unspecified; M79.7 Fibromyalgia; F17.210 Nicotine dependence, cigarettes, uncomplicated; Z79.899 Other long term (current) drug therapy; Z88.5 Allergy status to narcotic agent; Z88.6 Allergy status to analgesic agent; Z88.8 Allergy status to other drugs, medicaments and biological substances

== ENCOUNTER → 2020-09-20 | Outpatient (CLI) | payer MEDICARE, MEDICAID ==
--- NOTE | 2020-09-20 08:47 | REP ---
INDICATION: SPONDYLOSIS L SPINE. COMPARISON: MR lumbar spine 03/24/2020. TECHNIQUE: Sagittal T1, T2, STIR, axial T1 and T2 weighted MR images of the lumbar spine are obtained. FINDINGS: There is mild multilevel degenerative disc disease. There is straightening of the lumbar spine and absence of normal lumbar lordosis. Vertebral heights are preserved. No malalignments. On the sagittal T2 weighted images, no significant canal stenosis. On the review of axial images, At L1-2 and L2-3 no significant canal or foraminal narrowing At L3-4 and L4-5 diffuse disc bulges with mild canal narrowing and mild bilateral foraminal narrowing. At L5-S1 loss of disc height and diffuse disc bulge with [id number] left and at least moderate right foraminal narrowing. When compared to prior study of 03/24/2020, foraminal narrowing at L5-S1 may be minimally progressed. IMPRESSION: 1. Mild multilevel degenerative disc disease. 2. No limiting canal stenosis or disc herniation. 3. At L5-S1 loss of disc height and diffuse disc bulge with [id number] left and at least moderate right foraminal narrowing. 4. When compared to prior study of 03/24/2020, foraminal narrowing at L5-S1 may be minimally progressed. <Electronically signed by Galo Gold > 09/20/20 [id number]
== END ==
LOC: M PLARAD 07:37
PROVIDERS: ATTEND Nurse Practitioner Adult Health
DX: M47.817 Spondylosis without myelopathy or radiculopathy, lumbosacral region (principal)

== ENCOUNTER → 2020-11-01 | Outpatient (CLI) | payer MEDICARE, MEDICAID ==
--- NOTE | 2020-11-03 03:26 | ECWPNPC ---
PATIENT NAME: MARGARET LANIER : 1965 GENDER: FEMALE VISIT DATE: 11/01/2020 DISCHARGE DATE: 11/01/20 0954 VISIT LOCKED DATE TIME: PHYSICIAN: CRISTIANA LUEVANO PHYSICIAN PAGER NO: ACTIVE RESOURCE: CRISTIANA LUEVANO REASON FOR APPOINTMENT 1. LOW BACK PAIN HISTORY OF PRESENT ILLNESS DEPRESSION SCREENING: PHQ-2 (2015 EDITION) LITTLE INTEREST OR PLEASURE IN DOING THINGS?NOT AT ALL FEELING DOWN, DEPRESSED, OR HOPELESS?NOT AT ALL TOTAL SCORE0 GENERAL: HPI 55-YEAR-OLD FEMALE IN FOR CHRONIC PAIN FOLLOW-UP. SHE RATES HER PAIN CURRENTLY AT A 5 OUT OF 10 AND DESCRIBES IT CONTINUOUS, SQUEEZING, AND A VICE BIRD KEEPER.PATIENT DOES ADMIT TO RADICULAR SYMPTOMS.. -. FALL RISK SCREENING: SCREENING : NO FALLS REPORTED IN THE LAST YEAR. PAIN SCREENING: PATIENT HAS A COMPLAINT OF ACUTE OR CHRONIC PAIN :YES LOCATION OF PAIN:LOW BACK, LEFT HIP, RIGHT HIP INTENSITY OF PAIN (SCALE OF 1 TO 10):5 WHAT DOES YOUR PAIN FEEL LIKE:CONTINOUS, OTHER FEELS LIKE A VICE BIRD KEEPER, SQUEEZING DURATION:CONTINOUS, CONSTANT, AWAKENS FROM SLEEP PAIN IS INCREASED BY:ACTIVITIES, PROLONGED STANDING PAIN IS DECREASED BY:OTHERS WHIRLPOOL TUB, LAYING FLAT NURSING NOTE: -. PAIN CENTER INTAKE QUESTIONS: DO YOU HAVE A HISTORY OF MRSA? :NO DO YOU TAKE A BLOOD THINNERS? :NO DO YOU HAVE ANY BLEEDING DISORDERS? :NO ANY NEW NUMBNESS OR WEAKNESS IN YOUR LEGS OR ARMS? :NO ANY PACEMAKER,DEFIBRILLATOR, OR DORSAL COLUMN STIMULATOR? :NO DO YOU HAVE ANY RASHES OR OPEN SORES? :NO ARE YOU ALLERGIC TO IV DYE? :NO ARE YOU DIABETIC? :YES BORDERLINE DIABETIC ANY NEW PROBLEMS WITH YOUR MEDICATIONS? :NO HAVE YOU RECEIVED A VACCINE IN THE PAST 30 DAYS? :NO SECOND COVID VACCINATION 09/16/2020 DO YOU PLAN TO RECEIVE A VACCINE IN THE NEXT 21 DAYS? :NO DO YOU NEED ANY PRESCRIPTION? :NO DO YOU TAKE ANY IMMUNOSUPPRESSIVE MEDICATIONS? :NO DO YOU HAVE ANY KIDNEY OR LIVER DISEASE? :NO IS THERE A CHANCE YOU COULD BE ? :NO ARE YOU BREAST FEEDING? :NO CURRENT MEDICATIONS TAKING OMEPRAZOLE 40 MG CAPSULE DELAYED RELEASE 1 CAPSULE 30 MINUTES BEFORE MORNING MEAL ORALLY ONCE A DAY TAKING LISINOPRIL 20 MG TABLET 1 TABLET ORALLY BID TAKING ACETAMINOPHEN 500 MG CAPSULE 1 CAPSULE NEEDED ORALLY EVERY 6 HRS, NOTES: PRN TAKING IBUPROFEN 200 MG TABLET 1 TABLET WITH FOOD OR MILK NEEDED ORALLY FOUR TIMES DAILY NEEDED, NOTES: PRN TAKING MAY USE VICKS NASAL INHALER 1 DOSE DAILY NEEDED TAKING ALBUTEROL SULFATE HFA 108 (90 BASE) MCG/ACT AEROSOL SOLUTION 2 PUFFS NEEDED FOR COUGH INHALATION EVERY 4 HRS UNKNOWN DULOXETINE HCL 30 MG CAPSULE DELAYED RELEASE PARTICLES 1 CAPSULE ORALLY ONCE A DAY X 1 WEEK THEN INCREASE TO BID UNKNOWN TIZANIDINE HCL 2 MG TABLET 1 TABLET ORALLY Q HS PRN BACK SPASM MEDICATION LIST REVIEWED AND RECONCILED WITH THE PATIENT PAST MEDICAL HISTORY HYPERTENSION CHRONIC PAIN SYNDROME RESTLESS LEG SYNDROME HYPERLIPIDEMIA. LDL 08/14 128 (ASCVD RISK 6.1%) VITAMIN D DEFICIENCY 05/15 GASTRIC EMPTYING STUDY-UNREMARKABLE UNSPECIFIED ESSENTIAL HYPERTENSION 12/12 MRI L SPINE DIFFUSE DISC BULGE L3-4 MIN THEAL SAC COMPRESSION, MINIMAL CENTRAL CANAL L4-5, L5-S1 SECONDARY TO THE DISC BULGE LIGAMENTOUS AND FACET HYPERTROPHY, COMPRESSION OF L4 NERVE IN THE NEURAL FORAMEN 616, CERVICAL SPINE X-RAY, C5-6 DEGENERATIVE DISC DISEASE WITH LEFT FORAMINAL ENCROACHMENT AT THIS LEVEL. FACET ARTICULATIONS DEMONSTRATE MILD OSTEOARTHRITIS, SLIGHTLY PROGRESSED FROM APRIL 2008 03/26/2016 PFTS AT [facility], POSITIVE METHACHOLINE CHALLENGE STUDY. 04/19/2013 SLEEP STUDY AT [facility] SLEEP DISORDER CENTER, OBSTRUCTIVE SLEEP APNEA SYNDROME, NIGHTLY USE OF PRESSURE THERAPY AT 5 CM'S OF WATER FIBROMYALGIA SPRAIN LEFT ELBOW LOW BACK PAIN 08/15/20 REFUSES MAMMO, PAP, COLONOSCOPIES ALLERGIES COZAAR: RASH - ALLERGY HYDROCODONE-ACETAMINOPHEN: RASH - ALLERGY CODEINE SULFATE: RASH - ALLERGY ASPIRIN: UPSET STOMACH/ITCHING GABAPENTIN: UPSET STOMACH - SIDE EFFECTS SOCIAL HISTORY GENERAL: TOBACCO USE ARE YOU A:CURRENT SMOKER ARE YOU INTERESTED IN QUITTING?NOT READY TO QUIT COUNSELED THE PATIENT ON SMOKING EFFECTS, EDUCATION [id number]/01/2021 HOW MANY CIGARETTES A DAY DO YOU SMOKE?11-20 1 PPD HOW SOON AFTER YOU WAKE UP DO YOU SMOKE YOUR FIRST CIGARETTE?WITHIN 5 MIN HOW OFTEN DO YOU SMOKE CIGARETTES?EVERY DAY PATIENT COUNSELED ON THE DANGERS OF TOBACCO USE AND URGED TO QUIT:06/01/2020 HAVE YOU HAD A PNEUMOVAX VACCINE?YES SMOKING CESSATION INFORMATION GIVEN08/28/2019 LATEX QUESTIONNAIRE LATEX ALLERGY : HAVE YOU EVER DEVELOPED ANY TYPE OF REACTION AFTER HANDLING LATEX PRODUCTS SUCH RUBBER GLOVES, CONDOMS, DIAPHRAGMS, BALLOONS, SOCKS, OR UNDERWEAR?NO LATEX ALLERGY : HAVE YOU EVER DEVELOPED ANY TYPE OF REACTION DURING OR AFTER DENTAL APPOINTMENT, VAGINAL/RECTAL EXAMINATION, SURGICAL PROCEDURE, OR ANY OTHER EXPOSURE?NO DATE ASKED : 09/01/2020 LATEX RISK : HAVE YOU EVER HAD ANY DIFFICULTY BREATHING OR HIVES AFTER EATING OR HANDLING ANY FRUITS, OR VEGETABLES; SUCH KIWI, BANANAS, STONE FRUITS, OR CHESTNUTSNO LATEX RISK : DO YOU HAVE A PREVIOUS PERSONAL HISTORY OF MORE THAN NINE SURGERIES, SPINA BIFIDA, OR REPEATED CATHERIZATIONS? NO LATEX RISK : ARE YOU FREQUENTLY EXPOSED TO LATEX PRODUCTS IN YOUR OCCUPATION?NO ALCOHOL USE: NO. LUNG CANCER SCREENING SMOKING STATUS:CURRENT SMOKER BMI CARE GOAL FOLLOW-UP ABOVE NORMAL BMI FOLLOW-UPDIETARY MANAGEMENT EDUCATION, GUIDANCE, AND COUNSELING ALCOHOL SCREENING POINTS: 0, INTERPRETATION: NEGATIVE. RECREATIONAL DRUG USE DRUG USE?NO CAFFEINE CAFFEINE USE?YES 4/ DAY SEXUAL HX HAD SEX IN THE LAST 12 MONTHS (VAGINAL, ORAL, OR ANAL)?YES WITHMEN ONLY USE PROTECTION?NO LMP:2013 HAVE YOU EVER HAD AN STD?NO HIV / HEP-C SCREENING HIV TEST OFFERED TO PATIENT:YES DATE OFFERED:02/10/2018 TEST ACCEPTED:NO HEP-C TEST OFFERED TO PATIENT:YES DATE OFFERED:02/10/2018 REASON:OTHER (DOCUMENT IN NOTE) TESTED NEGATIVE IN THE PAST TEST ACCEPTED:NO REASON:PATIENT DECLINED BROCHURE PROVIDED TO PATIENTNO DECLINED, PAMPLET YARSANI NO JUDAISM BELIEFS THAT WOULD IMPACT HEALTH CARE. LANGUAGE LANGUAGES SPOKEN:[place] EDUCATION GRADE 10. 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 5PM-9PM. DIET: REGULAR, WORKING TO INCREASE THE FIBER IN HER DIET AND DECREASE RED MEAT. EXERCISE: NO REGULAR EXERCISE. MARITAL STATUS: . OTHERS AT HOME: BOYFRIEND X 7 YRS , CHILDREN , OF 2 CHILDRENS. REVIEW OF SYSTEMS CONSTITUTIONAL: ANY RECENT FEVER NO . CHILLS NO . WEIGHT CHANGE OF UNKNOWN REASONS NO . GASTROENTEROLOGY: NEW UNEXPLAINABLE CHANGES IN BOWEL CONTROL NO . CONSTIPATION NO . GENITOURINARY: ANY NEW CHANGE IN BLADDER CONTROL? NO . NEUROLOGY: NEW ONSET DIZZINESS OR NEUROLOGICAL CHANGES NOT MENTIONED NO . NEW NUMBNESS OR PAIN PATTERNS NOT MENTIONED AND PERTINENT TO TODAY'S VISIT NO . CARDIOLOGY: NEW CHEST PRESSURE NO . PATIENT DENIES NO . RESPIRATORY: UNEXPLAINABLE COUGH NO . NEW SHORTNESS OF BREATH NO . VITAL SIGNS WT 154.4 LBS, HT 59.75 IN, BMI 30.40 INDEX, BP 171/99 MM HG, REPEAT BP 156/98 MANUAL, HR 78 /MIN, RR 18 /MIN, TEMP 97.5 F, OXYGEN SAT % 96%, SAFE IN ENV? (Y/N) YES, NA INITIALS PA 09:21, REVIEWED BY: RADHA BP RETAKEN. ROBERT DOUGLASS MA. EXAMINATION GENERAL EXAMINATION: GENERALNO ACUTE DISTRESS, WELL NOURISHED AND HYDRATED. PSYCHAPPROPRIATE MOOD AND AFFECT . LUNGS:CLEAR TO AUSCULTATION BILATERALLY, NO WHEEZES, RHONCHI, RALES. HEART:NO MURMURS, REGULAR RATE AND RHYTHM. BACK:POINT TENDER LEFT LUMBAR SPINE, POSITIVE MODIFIED SLR LEFT SIDE. MUSCULOSKELETAL:NOTABLE WEAKNESS OF THE LEFT LOWER EXTREMITY, RIGHT LOWER EXTREMITY WITHIN NORMAL LIMITS. ASSESSMENTS INTERVERTEBRAL DISC DISORDER WITH RADICULOPATHY OF LUMBOSACRAL REGION - M51.17 (PRIMARY) TREATMENT INTERVERTEBRAL DISC DISORDER WITH RADICULOPATHY OF LUMBOSACRAL REGION MEDICATION: VALIUM TAB 10MG ORALLY (DIAZEPAM) (ORDERED FOR 11/09/2020) NOTES: 55-YEAR-OLD FEMALE IN FOR CHRONIC PAIN FOLLOW-UP. GIVEN PRESENTING SYMPTOMS AND RESULTS OF PHYSICAL EXAMINATION RECOMMENDED LUMBAR EPIDURAL STEROID INJECTIONS WITH POST PROCEDURAL FOLLOW-UP. PATIENT HAS EXPRESSED UNDERSTANDING OF AND WAS IN AGREEMENT WITH TREATMENT PLAN. GIVEN TIME TO ASK QUESTIONS AND EXPRESS CONCERNS. CLINICAL NOTES: PREPROCEDURE AND PROCEDURE INFORMATION PRINTED AND PROVIDED TO PATIENT. PATIENT VERBALIZED AN UNDERSTANDING. ROBERT DOUGLASS MA. PROCEDURE CODES FA211 ESTABILISHED PATIENT [facility] FACILITY CHARGE DISPOSITION & COMMUNICATION FOLLOW UP POST PROCEDURE (REASON: LUMBAR EPIDURAL STEROID INJECTION ) ELECTRONICALLY SIGNED BY CYNDI BRENNAN ON 11/02/2020 AT 08:55 AM EDT DISCLAIMER : THIS IS A VISIT SUMMARY EXTRACTED FROM THE [employer] CHART. IT IS NOT A COPY OF THE [employer] PROGRESS NOTE. MISA
== END ==
LOC: M PAIN 09:00
PROVIDERS: ATTEND Family Medicine
DX: M51.17 Intervertebral disc disorders with radiculopathy, lumbosacral region (principal); I10 Essential (primary) hypertension; G89.4 Chronic pain syndrome; G25.81 Restless legs syndrome; E78.5 Hyperlipidemia, unspecified; E55.9 Vitamin D deficiency, unspecified; M79.7 Fibromyalgia; F17.210 Nicotine dependence, cigarettes, uncomplicated; Z79.899 Other long term (current) drug therapy; Z88.5 Allergy status to narcotic agent; Z88.6 Allergy status to analgesic agent; Z88.8 Allergy status to other drugs, medicaments and biological substances

== ENCOUNTER → 2020-11-26 | Outpatient (CLI) | payer MEDICARE, MEDICAID | LOC: M LABSMTC 11:06 | PROVIDERS: ATTEND Anesthesiology | DX: Z11.52 Encounter for screening for COVID-19 (principal) ==

== ENCOUNTER → 2020-12-01 | Outpatient (CLI) | payer MEDICARE ==
[~2020-12-01] MED LIST changes: +ISOVUE-M 300 61% 15ML VIAL As Ordered ONE; +LIDOCAINE 1% SDV 30ML VIAL As Ordered ONE; +diazePAM 5MG TABLET As Ordered ONE; +methylPREDNISolone SUSP 40MG/ML 1ML VIAL (DEPO MEDROL) As Ordered ONE
--- NOTE | 2020-12-01 14:17 | REP ---
INDICATION: LESI. COMPARISON: None. TECHNIQUE: Three views. 6.6 seconds of fluoroscopy time is reported. FINDINGS: A sequence of 3 last image hold fluoroscopically obtained spot radiograph(s) of the lumbar spine document(s) needle position(s) and contrast injection associated with injection procedure. IMPRESSION: Procedural imaging. <Electronically signed by Diogenes Redd > 12/01/20 2715
--- NOTE | 2020-12-02 02:58 | ECWPNPC ---
PATIENT NAME: MARGARET LANIER : 1965 GENDER: FEMALE VISIT DATE: 12/01/2020 DISCHARGE DATE: 12/01/20 1437 VISIT LOCKED DATE TIME: PHYSICIAN: MARIIA BHARDWAJ MD PHYSICIAN PAGER NO: ACTIVE RESOURCE: MARIIA BHARDWAJ MD REASON FOR APPOINTMENT 1. LUMBAR EPIDURAL STEROID INJECTION HISTORY OF PRESENT ILLNESS GENERAL: -. FALL RISK SCREENING: SCREENING : NO FALLS REPORTED IN THE LAST YEAR. PAIN SCREENING: PATIENT HAS A COMPLAINT OF ACUTE OR CHRONIC PAIN :YES LOCATION OF PAIN:LOW BACK, RIGHT HIP, THIGH(S) INTENSITY OF PAIN (SCALE OF 1 TO 10):7.5 WHAT DOES YOUR PAIN FEEL LIKE:ACHING, CONTINOUS, STABBING DURATION:CONTINOUS, CONSTANT PAIN IS INCREASED BY:ACTIVITIES, PROLONGED STANDING PAIN IS DECREASED BY:USE OF PAIN MEDICATIONS, OTHERS WARM BATH NURSING NOTE: -. PAIN CENTER INTAKE QUESTIONS: DO YOU HAVE A HISTORY OF MRSA? :NO DO YOU TAKE A BLOOD THINNERS? :NO DO YOU HAVE ANY BLEEDING DISORDERS? :NO ANY NEW NUMBNESS OR WEAKNESS IN YOUR LEGS OR ARMS? :NO ANY PACEMAKER,DEFIBRILLATOR, OR DORSAL COLUMN STIMULATOR? :NO DO YOU HAVE ANY RASHES OR OPEN SORES? :NO ARE YOU ALLERGIC TO IV DYE? :NO ARE YOU DIABETIC? :YES BORDERLINE ANY NEW PROBLEMS WITH YOUR MEDICATIONS? :NO HAVE YOU RECEIVED A VACCINE IN THE PAST 30 DAYS? :NO DO YOU PLAN TO RECEIVE A VACCINE IN THE NEXT 21 DAYS? :NO DO YOU TAKE ANY IMMUNOSUPPRESSIVE MEDICATIONS? :NO ANY HISTORY OF SEIZURES? :NO ANY HISTORY OF CARDIAC ISSUES OR EVENTS? :NO DO YOU HAVE ANY KIDNEY OR LIVER DISEASE? :NO DO YOU HAVE SLEEP APNEA? :YES DO YOU WEAR A CPAP?NO ANY RECENT HEAD INJURY? :NO DO YOU HAVE ANY NEW INFECTIONS? :NO IS THERE A CHANCE YOU COULD BE ? :NO ARE YOU BREAST FEEDING? :NO WHEN DID YOU LAST EAT? : 11/30/20 1145 WHEN DID YOU LAST DRINK? : 12/01/20 0830 WHAT DID YOU LAST DRINK? : [place] UP NAME OF PERSON DRIVING YOU HOME? : -OLE DO YOU HAVE ANY OTHER QUESTIONS OR CONCERNS? : - CURRENT MEDICATIONS TAKING LISINOPRIL 20 MG TABLET 1 TABLET ORALLY ONCE A DAY, NOTES: 11/30/20 TAKING ACETAMINOPHEN 500 MG CAPSULE 1 CAPSULE NEEDED ORALLY EVERY 6 HRS, NOTES: PRN TAKING IBUPROFEN 200 MG TABLET 1 TABLET WITH FOOD OR MILK NEEDED ORALLY FOUR TIMES DAILY NEEDED, NOTES: PRN TAKING MAY USE VICKS NASAL INHALER 1 DOSE DAILY NEEDED TAKING ALBUTEROL SULFATE HFA 108 (90 BASE) MCG/ACT AEROSOL SOLUTION 2 PUFFS NEEDED FOR COUGH INHALATION EVERY 4 HRS TAKING ID-ACID PRN NOT-TAKING OMEPRAZOLE 40 MG CAPSULE DELAYED RELEASE 1 CAPSULE 30 MINUTES BEFORE MORNING MEAL ORALLY ONCE A DAY NOT-TAKING DULOXETINE HCL 30 MG CAPSULE DELAYED RELEASE PARTICLES 1 CAPSULE ORALLY ONCE A DAY X 1 WEEK THEN INCREASE TO BID NOT-TAKING TIZANIDINE HCL 2 MG TABLET 1 TABLET ORALLY Q HS PRN BACK SPASM MEDICATION LIST REVIEWED AND RECONCILED WITH THE PATIENT PAST MEDICAL HISTORY HYPERTENSION CHRONIC PAIN SYNDROME RESTLESS LEG SYNDROME HYPERLIPIDEMIA. LDL 08/14 128 (ASCVD RISK 6.1%) VITAMIN D DEFICIENCY 05/15 GASTRIC EMPTYING STUDY-UNREMARKABLE UNSPECIFIED ESSENTIAL HYPERTENSION 12/12 MRI L SPINE DIFFUSE DISC BULGE L3-4 MIN THEAL SAC COMPRESSION, MINIMAL CENTRAL CANAL L4-5, L5-S1 SECONDARY TO THE DISC BULGE LIGAMENTOUS AND FACET HYPERTROPHY, COMPRESSION OF L4 NERVE IN THE NEURAL FORAMEN 616, CERVICAL SPINE X-RAY, C5-6 DEGENERATIVE DISC DISEASE WITH LEFT FORAMINAL ENCROACHMENT AT THIS LEVEL. FACET ARTICULATIONS DEMONSTRATE MILD OSTEOARTHRITIS, SLIGHTLY PROGRESSED FROM APRIL 2008 03/26/2016 PFTS AT [facility], POSITIVE METHACHOLINE CHALLENGE STUDY. 04/19/2013 SLEEP STUDY AT [facility] SLEEP DISORDER CENTER, OBSTRUCTIVE SLEEP APNEA SYNDROME, NIGHTLY USE OF PRESSURE THERAPY AT 5 CM'S OF WATER FIBROMYALGIA SPRAIN LEFT ELBOW LOW BACK PAIN 08/15/20 REFUSES MAMMO, PAP, COLONOSCOPIES ALLERGIES COZAAR: RASH - ALLERGY HYDROCODONE-ACETAMINOPHEN: RASH - ALLERGY CODEINE SULFATE: RASH - ALLERGY ASPIRIN: UPSET STOMACH/ITCHING GABAPENTIN: UPSET STOMACH - SIDE EFFECTS SURGICAL HISTORY TUBAL (ANAI) 1989 COLONOSCOPY ([place]ENN) NEGATIVE - REPORTEDLY DUE IN 2015 REFUSES 02/201806/10/00 EGD REINDL- NORMAL ESOPHAGUS/STOMACH/DUODENUM, GERD, CONT DEXILANT. 06/19/13 CYST REMOVAL 2009 FAMILY HISTORY FATHER: 69 YRS, HYDROCEPHALUS; ALZHEIMER MOTHER: ALIVE 68 YRS, ( MON)DEPRESSION (ADMITTED), LOW BLOODSUGAR SIBLINGS: ALIVE, HALF BROTHERS (5) - ALL REPORTEDLY ARE ALCOHOLIC SON(S): ALIVE, SONS (2) - 1 WITH MENTAL RETARDATION, 1 WITH AUTISM 4 BROTHER(S) . 2 SON(S) - HEALTHY. PATIENT IS ADOPTED BUT SHE DID FIND HER BIOLOGICAL PARENTS ABOVE SO SHE KNOWS THEIR MEDICAL HISTORYSON HAD MELANOMA. SOCIAL HISTORY GENERAL: TOBACCO USE ARE YOU A:CURRENT SMOKER ARE YOU INTERESTED IN QUITTING?NOT READY TO QUIT COUNSELED THE PATIENT ON SMOKING EFFECTS, EDUCATION LLITCTFK99/01/2021 HOW MANY CIGARETTES A DAY DO YOU SMOKE?11-20 1 PPD HOW SOON AFTER YOU WAKE UP DO YOU SMOKE YOUR FIRST CIGARETTE?WITHIN 5 MIN HOW OFTEN DO YOU SMOKE CIGARETTES?EVERY DAY PATIENT COUNSELED ON THE DANGERS OF TOBACCO USE AND URGED TO QUIT:06/01/2020 HAVE YOU HAD A PNEUMOVAX VACCINE?YES SMOKING CESSATION INFORMATION GIVEN08/28/2019 LATEX QUESTIONNAIRE LATEX ALLERGY : HAVE YOU EVER DEVELOPED ANY TYPE OF REACTION AFTER HANDLING LATEX PRODUCTS SUCH RUBBER GLOVES, CONDOMS, DIAPHRAGMS, BALLOONS, SOCKS, OR UNDERWEAR?NO LATEX ALLERGY : HAVE YOU EVER DEVELOPED ANY TYPE OF REACTION DURING OR AFTER DENTAL APPOINTMENT, VAGINAL/RECTAL EXAMINATION, SURGICAL PROCEDURE, OR ANY OTHER EXPOSURE?NO LATEX RISK : HAVE YOU EVER HAD ANY DIFFICULTY BREATHING OR HIVES AFTER EATING OR HANDLING ANY FRUITS, OR VEGETABLES; SUCH KIWI, BANANAS, STONE FRUITS, OR CHESTNUTSNO LATEX RISK : DO YOU HAVE A PREVIOUS PERSONAL HISTORY OF MORE THAN NINE SURGERIES, SPINA BIFIDA, OR REPEATED CATHERIZATIONS? NO LATEX RISK : ARE YOU FREQUENTLY EXPOSED TO LATEX PRODUCTS IN YOUR OCCUPATION?NO DATE ASKED : 11/29/2020 ALCOHOL USE: NO. LUNG CANCER SCREENING SMOKING STATUS:CURRENT SMOKER BMI CARE GOAL FOLLOW-UP ABOVE NORMAL BMI FOLLOW-UPDIETARY MANAGEMENT EDUCATION, GUIDANCE, AND COUNSELING ALCOHOL SCREENING POINTS: 0, INTERPRETATION: NEGATIVE. RECREATIONAL DRUG USE DRUG USE?YES MARIJUANA HOW OFTEN AND HOW MUCH? OCCASIONALLY CAFFEINE CAFFEINE USE?YES 4/ DAY SEXUAL HX HAD SEX IN THE LAST 12 MONTHS (VAGINAL, ORAL, OR ANAL)?YES WITHMEN ONLY USE PROTECTION?NO LMP:2013 HAVE YOU EVER HAD AN STD?NO HIV / HEP-C SCREENING HIV TEST OFFERED TO PATIENT:YES DATE OFFERED:02/10/2018 TEST ACCEPTED:NO HEP-C TEST OFFERED TO PATIENT:YES DATE OFFERED:02/10/2018 REASON:OTHER (DOCUMENT IN NOTE) TESTED NEGATIVE IN THE PAST TEST ACCEPTED:NO REASON:PATIENT DECLINED BROCHURE PROVIDED TO PATIENTNO DECLINED, PAMPLET CHRISTIAN NO JEWISH BELIEFS THAT WOULD IMPACT HEALTH CARE. LANGUAGE LANGUAGES SPOKEN:GABONESE EDUCATION GRADE 10. LEARNING BARRIERS / SPECIAL NEEDS CHANGE FROM LAST VISIT?NO BARRIERS TO LEARNING?NO HEARING IMPAIRED?NO VISION IMPAIRED?YES :CORRECTIVE LENSES COGNITIVELY IMPAIRED?NO READINESS TO LEARN?YES LEARNING PREFERENCES?NO LEARNING CAPABILITIES PRESENT?YES EMOTIONAL BARRIERS?NO SPECIAL DEVICES?NO ROTOR COIL TAPER NEEDED?NO OCCUPATION: DISABILITY AND WORKS AT [employer]. 5PM-9PM. DIET: REGULAR, WORKING TO INCREASE THE FIBER IN HER DIET AND DECREASE RED MEAT. EXERCISE: NO REGULAR EXERCISE. MARITAL STATUS: . OTHERS AT HOME: BOYFRIEND X 7 YRS , CHILDREN , OF 2 CHILDRENS. HOSPITALIZATION/MAJOR DIAGNOSTIC PROCEDURE CHILDBEARING A CHILD FOR ANEMIA VITAL SIGNS WT 153.8 LBS, HT 59.75 IN, BMI 30.29 INDEX, BP 168/100 MM HG, REPEAT BP 138/106 MANUAL, HR 85 /MIN, RR 18 /MIN, TEMP 98.3 F, OXYGEN SAT % 93%, SAFE IN ENV? (Y/N) Y, NA INITIALS AW 1143, REVIEWED BY: RUEL. EXAMINATION GENERAL: THE PATIENT IS ALERT, ORIENTED TIMES THREE AND COOPERATIVE. LUNGS ARE CLEAR TO AUSCULTATION. HEART SHOWS REGULAR RHYTHM, NO MURMURS AND NO GALLOPS. ASSESSMENTS INTERVERTEBRAL DISC DISORDER WITH RADICULOPATHY OF LUMBOSACRAL REGION - M51.17 (PRIMARY) TREATMENT INTERVERTEBRAL DISC DISORDER WITH RADICULOPATHY OF LUMBOSACRAL REGION [facility] FLUORO GUIDE SPINE INJECTION (PAIN)[id number] SALINE MIKAEL BOO 12/01/2020 12:38:51 PM > #22 SL STARTED X 2 ND ATTEMPT BY THIS SENIOR DATASTAGE DEVELOPER IN RIGHT HAND. SITE ASYMPTOMATIC, FLUSHES WELL. PATIENT TOLERATED WELL. COMPLETION OF PROCEDURAL VISIT WHEN MEETS CRITERIANATHALIA VENTURA 12/01/2020 2:42:03 PM > CRITERIA MET MEDICATION: VALIUM TAB 10MG ORALLY (DIAZEPAM)MIKAEL RUDOLPH 12/01/2020 12:36:41 PM > VERIFIED NATHALIA VENTURA 12/01/2020 12:40:04 PM > ADMINISTERED OTHERS NOTES: PAT COMPLETED 11/29/20 M FARIHA LLOYD. PROCEDURES PAIN NURSING RECORD PROCEDURE IN ROOM 1325, PHYSICIAN IN ROOM 1348, START 1351, FINISH 1355, PHYSICIAN OUT OF ROOM 1356, OUT OF ROOM 1400, ECG NORMAL SINUS, PATIENT SHIELDED YES, SAFETY STRAP YES, PREP BETADINE Ammon VENTURA RN, DRESSING TEGADERM DR. BHARDWAJ LOC: 1. ALERT, ORIENTED, NATHALIA VENTURA 12/01/2020 1:52:52 PM > RESP: 1. REGULAR, NO DYSPNEA, NATHALIA VENTURA 12/01/2020 1:52:56 PM > COLOR: 1. PINK, NATHALIA VENTURA 12/01/2020 1:52:59 PM > SKIN: 1. WARM, DRY, NATHALIA VENTURA 12/01/2020 1:53:04 PM > POSITION: 1. PRONE, NATHALIA VENTURA 12/01/2020 1:32:41 PM > VITALS: 167/103, 58, 16, 98%, NATHALIA VENTURA 12/01/2020 1:32:57 PM > 171/90, 58, 16, 96% NATHALIA VENTURA 12/01/2020 1:45:51 PM > , 171/90, 64, 16, 96%, NATHALIA VENTURA 12/01/2020 1:53:22 PM > 181/111, 67, 16, 96%, NATHALIA VENTURA 12/01/2020 2:10:21 PM > 170/130 CHRISSIE, DR LASHAE GRIFFITHS, WAIT 5-10 MINUTES TO RECHECK. PT TAKES LISINOPRIL LAST DOSE 11/30/20 PM. SHE TAKES IT NIGHTLY, DR LASHAE GRIFFITSH.LORENZO ELIZABETH 12/01/2020 2:15:26 PM > 150/78 CHRISSIE, DR LASHAE GRIFFITHS, OK TO D/C HOME., NATHALIA VENTURA 12/01/2020 2:37:15 PM > NOTES Ammon VENTURA RN, NATHALIA VNETURA 12/01/2020 1:33:01 PM > COMPLETION OF PROCEDURE APPOINTMENT: POST PAIN 4, DRESSING SITE DRY AND INTACT, IV DISCONTINUED, SITE CLEAR, CATHETER INTACT, GAIT STEADY, TEACHING COMPLETED, PATIENT ACKNOWLEDGES UNDERSTANDING YES, PROCEDURE APPOINTMENT COMPLETED AT 1430 : AFTER OPENING EPIDURAL TRAY AND DONNING STERILE GLOVES, AN OPEN VIAL WAS FOUND IN EPIDURAL TRAY. TRAY SET ASIDE TO GIVE TO DMITRI GÓMEZ. NEW TRAY OPENED AND STERILE FIELD PREPARED WITH NO OPEN VIALS. THIS CAUSED A DELAY IN CARE. CHARGE NURSE Bess MATIAS RN AWARE., NATHALIA VENTURA 12/01/2020 1:37:20 PM > X-RAY TECH CALLED @ 1335. , NATHALIA VENTURA 12/01/2020 1:39:28 PM > COVER SHEET LEFT ON ROBBIE'S DESK WITH NOTES FROM DR BHARDWAJ FOR HER TO DOCUMENT 6CM, 6 SEC AND THAT PT IS A CANDIDATE FOR MILD OR VERTIFLEX, , NATHALIA VENTURA 12/01/2020 2:26:54 PM > PRE PROCEDURE DIAGNOSIS LUMBAR DISC DISORDER WITH RADICULOPATHY POST PROCEDURE DIAGNOSIS LUMBAR DISC DISORDER WITH RADICULOPATHY PROCEDURE LUMBAR EPIDURAL STEROID INJECTION UNDER FLUOROSCOPIC GUIDANCE SURGEON DR. MARIIA BHARDWAJ MOLDER HAND NONE ANESTHESIA LOCAL PRE PROCEDURE NOTE THE PATIENT HAS A HISTORY OF CHRONIC LOW BACK PAIN. I EVALUATED THE PATIENT AND REVIEWED THE CHART. I WENT OVER THE RISKS, ALTERNATIVES, AND BENEFITS ASSOCIATED WITH THIS PROCEDURE. THE PATIENT WOULD LIKE TO PROCEED AND GIVE CONSENT TO PERFORMED THE PROCEDURE. THE PATIENT DENIES UNEXPLAINABLE WEIGHT LOSS, FEVER, CHILLS, OR NEW CHANGES IN URINARY OR BOWEL CONTROL. THE PATIENT IS COVID-19 NEGATIVE DESCRIPTION OF PROCEDURE THE PATIENT WAS BROUGHT TO THE PROCEDURE ROOM AND PLACED IN THE PRONE POSITION. THE LUMBOSACRAL AREA WAS CLEANED WITH BETADINE SOLUTION AND DRAPED ASEPTICALLY. THE PROCEDURE WAS DONE UNDER STERILE CONDITIONS. A TIMEOUT WAS PERFORMED WHERE THE CONSENTED SITE WAS VERIFIED WITH EVERYONE IN THE ROOM. UNDER FLUOROSCOPIC GUIDANCE, THE TARGET POINT WAS SELECTED AT THE INTERLAMINAR LEVEL OF L4-L5. I CONFIRMED AGAIN THE SITE OF TARGET. LIDOCAINE WAS USED TO NUMB THE SKIN AND THE SUBCUTANEOUS TISSUE BELOW IT. EPIDURAL TUOHY NEEDLE, 17-GAUGE, WAS ADVANCED UNDER FLUOROSCOPIC GUIDANCE AND FOLLOWING PATIENT FEEDBACK UNTIL THE EPIDURAL SPACE WAS REACHED 6 CM DEEP INTO THE SKIN BY THE LOSS OF RESISTANCE TECHNIQUE. ISOVUE-M DYE 30%, 0.25 ML, WAS INJECTED SHOWING ADEQUATE SPREAD OF THE DYE. THEN, A SOLUTION OF 3 ML OF NORMAL SALINE WITH DEPO-MEDROL 40 MG WAS INJECTED SLOWLY FOLLOWING PATIENT FEEDBACK. THE MEDICATIONS WERE VERIFIED WITH THE NURSE. THERE WAS NO EVIDENCE OF BLOOD, PARESTHESIA OR CEREBROSPINAL FLUID DURING THE PROCEDURE. THE PATIENT WAS SENT TO THE RECOVERY ROOM. THE PATIENT WAS MOVING THE EXTREMITIES AND DOING WELL. THERE WERE NO COMPLICATIONS DURING THE PROCEDURE. ESTIMATED BLOOD LOSS WAS LESS THAN 5 ML. FLUOROSCOPY TIME WAS 6 SECONDS POST PROCEDURE NOTE THE PATIENT WILL BE SEEN IN A FOLLOW UP IN THE NEXT FEW WEEKS. I AM LOOKING FOR LONG LASTING RELIEF FOR THE PATIENT WITH THIS INTERVENTION. INSTRUCTIONS WERE GIVEN, QUESTIONS WERE ANSWERED, AND THE PATIENT EXPRESSED UNDERSTANDING AND AGREES WITH THE PLAN. I, ROBBIE LAGUNA, DOCUMENTED THE ABOVE INFORMATION ACTING A SCRIBE FOR DR. BHARDWAJ. I HAVE REVIEWED THE ABOVE DOCUMENT, WRITTEN BY ROBBIE LAGUNA, SCRUB NURSE, AND I VERIFY THAT IT IS ACCURATE PROCEDURE CODES 54288 LUMBAR/SACRAL W/ IMAGING DISPOSITION & COMMUNICATION FOLLOW UP FOLLOW UP WITH INSPECTOR FINAL ASSEMBLY ELECTRICAL (REASON: POST LUMBAR EPIDURAL STEROID INJECTION) ELECTRONICALLY SIGNED BY MARIIA BHARDWAJ MD, MD ON 12/01/2020 AT 05:08 PM EDT DISCLAIMER : THIS IS A VISIT SUMMARY EXTRACTED FROM THE [employer] CHART. IT IS NOT A COPY OF THE [employer] PROGRESS NOTE. MISA
== END ==
LOC: M PAIN 11:20
PROVIDERS: ATTEND Anesthesiology
DX: M51.17 Intervertebral disc disorders with radiculopathy, lumbosacral region (principal); I10 Essential (primary) hypertension; G89.4 Chronic pain syndrome; G25.81 Restless legs syndrome; E55.9 Vitamin D deficiency, unspecified; E78.5 Hyperlipidemia, unspecified; M79.7 Fibromyalgia; F17.210 Nicotine dependence, cigarettes, uncomplicated; Z79.899 Other long term (current) drug therapy; Z88.5 Allergy status to narcotic agent; Z88.6 Allergy status to analgesic agent; Z88.8 Allergy status to other drugs, medicaments and biological substances
CPT/HCPCS: 62323; J1030; Q9967

== ENCOUNTER → 2020-12-22 | Outpatient (CLI) | payer MEDICARE ==
[~2020-12-22] MED LIST changes: -ISOVUE-M 300 61% 15ML VIAL As Ordered ONE; -LIDOCAINE 1% SDV 30ML VIAL As Ordered ONE; -diazePAM 5MG TABLET As Ordered ONE; -methylPREDNISolone SUSP 40MG/ML 1ML VIAL (DEPO MEDROL) As Ordered ONE
--- NOTE | 2020-12-24 02:21 | ECWPNPC ---
PATIENT NAME: MARGARET LANIER : 1965 GENDER: FEMALE VISIT DATE: 12/22/2020 DISCHARGE DATE: 12/22/20 1143 VISIT LOCKED DATE TIME: PHYSICIAN: CRISTIANA LUEVANO PHYSICIAN PAGER NO: ACTIVE RESOURCE: CRISTIANA LUEVANO REASON FOR APPOINTMENT 1. POST LUMBAR EPIDURAL STEROID INJECTION HISTORY OF PRESENT ILLNESS GENERAL: HPI 55-YEAR-OLD FEMALE IN FOR POST LUMBAR EPIDURAL STEROID INJECTION FOLLOW-UP. PATIENT FEELS HER PROCEDURE WAS UNSUCCESSFUL. SHE RATES HER PAIN CURRENTLY AT A 5 OUT OF 10 AND DESCRIBES IT CONTINUOUS AND SORE. WHEN ASKED PATIENT DOES ADMIT TO USE OF GABAPENTIN IN THE PAST AND FURTHER STATES THAT IT WAS NOT OF BENEFIT.. -. FALL RISK SCREENING: SCREENING : NO FALLS REPORTED IN THE LAST YEAR. PAIN SCREENING: PATIENT HAS A COMPLAINT OF ACUTE OR CHRONIC PAIN :YES LOCATION OF PAIN:LOW BACK INTENSITY OF PAIN (SCALE OF 1 TO 10):5 WHAT DOES YOUR PAIN FEEL LIKE:CONTINOUS, SORE DURATION:CONTINOUS, CONSTANT, AWAKENS FROM SLEEP PAIN IS INCREASED BY:ACTIVITIES, PROLONGED STANDING PAIN IS DECREASED BY:OTHERS REPOSITIONING, HOT WATER NURSING NOTE: -. PAIN CENTER INTAKE QUESTIONS: DO YOU HAVE A HISTORY OF MRSA? :NO DO YOU TAKE A BLOOD THINNERS? :NO DO YOU HAVE ANY BLEEDING DISORDERS? :NO ANY NEW NUMBNESS OR WEAKNESS IN YOUR LEGS OR ARMS? :NO ANY PACEMAKER,DEFIBRILLATOR, OR DORSAL COLUMN STIMULATOR? :NO DO YOU HAVE ANY RASHES OR OPEN SORES? :YES THIGH AREA ARE YOU ALLERGIC TO IV DYE? :NO ARE YOU DIABETIC? :YES BORDERLINE DIABETIC ANY NEW PROBLEMS WITH YOUR MEDICATIONS? :NO HAVE YOU RECEIVED A VACCINE IN THE PAST 30 DAYS? :NO SECOND COVID VACCINATION 09/16/2020 DO YOU PLAN TO RECEIVE A VACCINE IN THE NEXT 21 DAYS? :NO DO YOU NEED ANY PRESCRIPTION? :NO DO YOU TAKE ANY IMMUNOSUPPRESSIVE MEDICATIONS? :NO DO YOU HAVE ANY KIDNEY OR LIVER DISEASE? :NO IS THERE A CHANCE YOU COULD BE ? :NO ARE YOU BREAST FEEDING? :NO CURRENT MEDICATIONS TAKING LISINOPRIL 20 MG TABLET 1 TABLET ORALLY ONCE A DAY, NOTES: 11/30/20 TAKING ACETAMINOPHEN 500 MG CAPSULE 1 CAPSULE NEEDED ORALLY EVERY 6 HRS, NOTES: PRN TAKING IBUPROFEN 200 MG TABLET 1 TABLET WITH FOOD OR MILK NEEDED ORALLY FOUR TIMES DAILY NEEDED, NOTES: PRN TAKING MAY USE VICKS NASAL INHALER 1 DOSE DAILY NEEDED TAKING ALBUTEROL SULFATE HFA 108 (90 BASE) MCG/ACT AEROSOL SOLUTION 2 PUFFS NEEDED FOR COUGH INHALATION EVERY 4 HRS TAKING WV-ACID PRN NOT-TAKING OMEPRAZOLE 40 MG CAPSULE DELAYED RELEASE 1 CAPSULE 30 MINUTES BEFORE MORNING MEAL ORALLY ONCE A DAY NOT-TAKING DULOXETINE HCL 30 MG CAPSULE DELAYED RELEASE PARTICLES 1 CAPSULE ORALLY ONCE A DAY X 1 WEEK THEN INCREASE TO BID NOT-TAKING TIZANIDINE HCL 2 MG TABLET 1 TABLET ORALLY Q HS PRN BACK SPASM MEDICATION LIST REVIEWED AND RECONCILED WITH THE PATIENT PAST MEDICAL HISTORY HYPERTENSION CHRONIC PAIN SYNDROME RESTLESS LEG SYNDROME HYPERLIPIDEMIA. LDL 08/14 128 (ASCVD RISK 6.1%) VITAMIN D DEFICIENCY 05/15 GASTRIC EMPTYING STUDY-UNREMARKABLE UNSPECIFIED ESSENTIAL HYPERTENSION 12/12 MRI L SPINE DIFFUSE DISC BULGE L3-4 MIN THEAL SAC COMPRESSION, MINIMAL CENTRAL CANAL L4-5, L5-S1 SECONDARY TO THE DISC BULGE LIGAMENTOUS AND FACET HYPERTROPHY, COMPRESSION OF L4 NERVE IN THE NEURAL FORAMEN 616, CERVICAL SPINE X-RAY, C5-6 DEGENERATIVE DISC DISEASE WITH LEFT FORAMINAL ENCROACHMENT AT THIS LEVEL. FACET ARTICULATIONS DEMONSTRATE MILD OSTEOARTHRITIS, SLIGHTLY PROGRESSED FROM APRIL 2008 03/26/2016 PFTS AT [facility], POSITIVE METHACHOLINE CHALLENGE STUDY. 04/19/2013 SLEEP STUDY AT [facility] SLEEP DISORDER CENTER, OBSTRUCTIVE SLEEP APNEA SYNDROME, NIGHTLY USE OF PRESSURE THERAPY AT 5 CM'S OF WATER FIBROMYALGIA SPRAIN LEFT ELBOW LOW BACK PAIN 08/15/20 REFUSES MAMMO, PAP, COLONOSCOPIES ALLERGIES COZAAR: RASH - ALLERGY HYDROCODONE-ACETAMINOPHEN: RASH - ALLERGY CODEINE SULFATE: RASH - ALLERGY ASPIRIN: UPSET STOMACH/ITCHING GABAPENTIN: UPSET STOMACH - SIDE EFFECTS SOCIAL HISTORY GENERAL: TOBACCO USE ARE YOU A:CURRENT SMOKER ARE YOU INTERESTED IN QUITTING?NOT READY TO QUIT COUNSELED THE PATIENT ON SMOKING EFFECTS, EDUCATION [id number]/22/2021 HOW MANY CIGARETTES A DAY DO YOU SMOKE?11-20 1 PPD HOW SOON AFTER YOU WAKE UP DO YOU SMOKE YOUR FIRST CIGARETTE?WITHIN 5 MIN HOW OFTEN DO YOU SMOKE CIGARETTES?EVERY DAY PATIENT COUNSELED ON THE DANGERS OF TOBACCO USE AND URGED TO QUIT:12/22/2020 HAVE YOU HAD A PNEUMOVAX VACCINE?YES SMOKING CESSATION INFORMATION GIVEN08/28/2019 LATEX QUESTIONNAIRE LATEX ALLERGY : HAVE YOU EVER DEVELOPED ANY TYPE OF REACTION AFTER HANDLING LATEX PRODUCTS SUCH RUBBER GLOVES, CONDOMS, DIAPHRAGMS, BALLOONS, SOCKS, OR UNDERWEAR?NO LATEX ALLERGY : HAVE YOU EVER DEVELOPED ANY TYPE OF REACTION DURING OR AFTER DENTAL APPOINTMENT, VAGINAL/RECTAL EXAMINATION, SURGICAL PROCEDURE, OR ANY OTHER EXPOSURE?NO LATEX RISK : HAVE YOU EVER HAD ANY DIFFICULTY BREATHING OR HIVES AFTER EATING OR HANDLING ANY FRUITS, OR VEGETABLES; SUCH KIWI, BANANAS, STONE FRUITS, OR CHESTNUTSNO LATEX RISK : DO YOU HAVE A PREVIOUS PERSONAL HISTORY OF MORE THAN NINE SURGERIES, SPINA BIFIDA, OR REPEATED CATHERIZATIONS? NO LATEX RISK : ARE YOU FREQUENTLY EXPOSED TO LATEX PRODUCTS IN YOUR OCCUPATION?NO DATE ASKED : 12/22/2020 ALCOHOL USE: NO. LUNG CANCER SCREENING SMOKING STATUS:CURRENT SMOKER BMI CARE GOAL FOLLOW-UP ABOVE NORMAL BMI FOLLOW-UPDIETARY MANAGEMENT EDUCATION, GUIDANCE, AND COUNSELING ALCOHOL SCREENING POINTS: 0, INTERPRETATION: NEGATIVE. RECREATIONAL DRUG USE DRUG USE?YES MARIJUANA HOW OFTEN AND HOW MUCH? OCCASIONALLY CAFFEINE CAFFEINE USE?YES 4/ DAY SEXUAL HX HAD SEX IN THE LAST 12 MONTHS (VAGINAL, ORAL, OR ANAL)?YES WITHMEN ONLY USE PROTECTION?NO LMP:2013 HAVE YOU EVER HAD AN STD?NO HIV / HEP-C SCREENING HIV TEST OFFERED TO PATIENT:YES DATE OFFERED:02/10/2018 TEST ACCEPTED:NO HEP-C TEST OFFERED TO PATIENT:YES DATE OFFERED:02/10/2018 REASON:OTHER (DOCUMENT IN NOTE) TESTED NEGATIVE IN THE PAST TEST ACCEPTED:NO REASON:PATIENT DECLINED BROCHURE PROVIDED TO PATIENTNO DECLINED, PAMPLET SHINTO NO JUDAISM BELIEFS THAT WOULD IMPACT HEALTH CARE. LANGUAGE LANGUAGES SPOKEN:NAURUAN EDUCATION GRADE 10. LEARNING BARRIERS / SPECIAL NEEDS CHANGE FROM LAST VISIT?NO BARRIERS TO LEARNING?NO HEARING IMPAIRED?NO VISION IMPAIRED?YES :CORRECTIVE LENSES COGNITIVELY IMPAIRED?NO READINESS TO LEARN?YES LEARNING PREFERENCES?NO LEARNING CAPABILITIES PRESENT?YES EMOTIONAL BARRIERS?NO SPECIAL DEVICES?NO PROVINCE ARCHIVIST NEEDED?NO OCCUPATION: DISABILITY AND WORKS AT [employer]. 5PM-9PM. DIET: REGULAR, WORKING TO INCREASE THE FIBER IN HER DIET AND DECREASE RED MEAT. EXERCISE: NO REGULAR EXERCISE. MARITAL STATUS: . OTHERS AT HOME: BOYFRIEND X 7 YRS , CHILDREN , OF 2 CHILDRENS. REVIEW OF SYSTEMS CONSTITUTIONAL: ANY RECENT FEVER NO . CHILLS NO . WEIGHT CHANGE OF UNKNOWN REASONS NO . GASTROENTEROLOGY: NEW UNEXPLAINABLE CHANGES IN BOWEL CONTROL NO . CONSTIPATION NO . GENITOURINARY: ANY NEW CHANGE IN BLADDER CONTROL? NO . NEUROLOGY: NEW ONSET DIZZINESS OR NEUROLOGICAL CHANGES NOT MENTIONED NO . NEW NUMBNESS OR PAIN PATTERNS NOT MENTIONED AND PERTINENT TO TODAY'S VISIT NO . CARDIOLOGY: NEW CHEST PRESSURE NO . PATIENT DENIES NO . RESPIRATORY: UNEXPLAINABLE COUGH NO . NEW SHORTNESS OF BREATH NO . VITAL SIGNS WT 155.6 LBS, HT 59.75 IN, BMI 30.64 INDEX, BP 133/86 MM HG, HR 76 /MIN, RR 18 /MIN, TEMP 97.3 F, OXYGEN SAT % 93%, SAFE IN ENV? (Y/N) YES, NA INITIALS AW 1115, REVIEWED BY: ALFREDITO DOUGLASS MA. EXAMINATION GENERAL EXAMINATION: GENERALNO ACUTE DISTRESS, WELL NOURISHED AND HYDRATED. PSYCHAPPROPRIATE MOOD AND AFFECT . LUNGS:CLEAR TO AUSCULTATION BILATERALLY, NO WHEEZES, RHONCHI, RALES. HEART:NO MURMURS, REGULAR RATE AND RHYTHM. ASSESSMENTS OTHER CHRONIC PAIN - G89.29 (PRIMARY) INTERVERTEBRAL DISC DISORDER WITH RADICULOPATHY OF LUMBOSACRAL REGION - M51.17 TREATMENT OTHER CHRONIC PAIN START LYRICA CAPSULE, 75 MG, 1 CAPSULE, ORALLY, TWICE A DAY, 30 DAYS, 60 CAPSULE, REFILLS 2 PAIN PROCEDURE LOGDATE OF [id number]/01/2021PROCEDURE:LUMBAR EPIDURAL STEROID INJECTIONAMOUNT OF PRE SEDATEVALIUM 10MG CLINICAL NOTES: LYRICA INFORMATION PRINTED AND PROVIDED TO PATIENT. PATIENT VERBALIZED AN UNDERSTANDING. ROBERT DOUGLASS MA. INTERVERTEBRAL DISC DISORDER WITH RADICULOPATHY OF LUMBOSACRAL REGION NOTES: 55-YEAR-OLD FEMALE IN FOR POST LUMBAR EPIDURAL STEROID INJECTION FOLLOW-UP. GIVEN PRESENTING SYMPTOMS AND THE FACT THAT PATIENT HAS BEEN ON GABAPENTIN IN THE PAST TO NO AVAIL RECOMMEND LYRICA 75 MG TWICE DAILY WITH FOLLOW-UP IN 2 MONTHS TO DETERMINE EFFICACY OF TREATMENT. PATIENT HAS EXPRESSED UNDERSTANDING OF AND WAS IN AGREEMENT WITH TREATMENT PLAN. GIVEN TIME TO ASK QUESTIONS AND EXPRESS CONCERNS. [employer]RY REVIEWED AND DEMONSTRATES COMPLLIANCE. (REF #[id number] ). PROCEDURE CODES FA211 ESTABILISHED PATIENT [facility] CHARGE DISPOSITION & COMMUNICATION FOLLOW UP 2 MONTHS (REASON: NEW MED) ELECTRONICALLY SIGNED BY CYNDI BRENNAN ON 12/23/2020 AT 08:48 AM EDT DISCLAIMER : THIS IS A VISIT SUMMARY EXTRACTED FROM THE [employer] CHART. IT IS NOT A COPY OF THE [employer] PROGRESS NOTE. MISA
== END ==
LOC: M PAIN 11:15
PROVIDERS: ATTEND Family Medicine
DX: G89.29 Other chronic pain (principal); M51.17 Intervertebral disc disorders with radiculopathy, lumbosacral region; I10 Essential (primary) hypertension; G25.81 Restless legs syndrome; E78.5 Hyperlipidemia, unspecified; E55.9 Vitamin D deficiency, unspecified; M79.7 Fibromyalgia; F17.210 Nicotine dependence, cigarettes, uncomplicated; Z79.899 Other long term (current) drug therapy; Z88.5 Allergy status to narcotic agent; Z88.6 Allergy status to analgesic agent; Z88.8 Allergy status to other drugs, medicaments and biological substances

== ENCOUNTER → 2021-02-24 | Outpatient (CLI) | payer MEDICARE | LOC: M PAIN 09:30 | PROVIDERS: ATTEND Anesthesiology | DX: M47.817 Spondylosis without myelopathy or radiculopathy, lumbosacral region (principal); G89.29 Other chronic pain; G25.81 Restless legs syndrome; M79.7 Fibromyalgia; F17.210 Nicotine dependence, cigarettes, uncomplicated; Z88.5 Allergy status to narcotic agent; Z88.6 Allergy status to analgesic agent; Z88.8 Allergy status to other drugs, medicaments and biological substances; Z79.899 Other long term (current) drug therapy ==

== ENCOUNTER → 2021-03-29 | Outpatient (REF) | payer MEDICARE | LOC: M SFHCPLAZ 13:00 | PROVIDERS: ATTEND Physician Assistant | DX: Z20.822 Contact with and (suspected) exposure to COVID-19 (principal) | CPT/HCPCS: 87426; G0463; U0003 ==

== ENCOUNTER 2021-07-01 14:49 | Emergency (ER) | payer MEDICARE ==
[~2021-07-01] VITALS: Ht 149.9 cm; Wt 69.4 kg
[~2021-07-01 14:49] MED LIST changes: -MONT10TA10; +MONT10TA97
[2021-07-01] MEDS ORDERED: ALBU8.5H (15:11)
[2021-07-01] MEDS ORDERED: METH-1164 PO (15:31)
[2021-07-01 16:26] VITALS: BP 161/85
== END 2021-07-01 16:27 | disposition home or self-care (01) ==
LOC: M ED 14:49
DX: M54.32 Sciatica, left side (principal); F17.200 Nicotine dependence, unspecified, uncomplicated; M79.7 Fibromyalgia; Z88.6 Allergy status to analgesic agent; Z88.8 Allergy status to other drugs, medicaments and biological substances
CPT/HCPCS: 96372; 99283; J1885

== ENCOUNTER → 2021-09-14 | Outpatient (REF) | payer MEDICARE ==
[~2021-09-14] MED LIST changes: +ALBU8.5H; +METH-1164 PO
== END ==
LOC: M LAB REF 16:18
PROVIDERS: ATTEND Physician Assistant
DX: R05.9 Cough, unspecified (principal)

== ENCOUNTER → 2022-02-28 | Outpatient (CLI) | payer MEDICARE ==
[~2022-02-28] MED LIST changes: +POTA-150 PO; -POTA10TA17 PO
== END ==
LOC: M RAD 07:45
PROVIDERS: ATTEND Nurse Practitioner Adult Health
DX: F17.210 Nicotine dependence, cigarettes, uncomplicated (principal); R91.1 Solitary pulmonary nodule

== ENCOUNTER 2022-03-10 11:56 | Emergency (ER) | payer MEDICARE ==
[~2022-03-10] VITALS: Ht 149.9 cm; Wt 65.2 kg
[2022-03-10] MEDS ORDERED: BENZONATATE 100MG CAPSULE PO ONE (13:25)
[2022-03-10] MEDS ORDERED: predniSONE 20 MG TAB PO ONE (13:25)
[2022-03-10 13:27] LABS: RSV AMPLIFICATION NEGATIVE (NEGATIVE)
[2022-03-10] MEDS ORDERED: guaiFENesin ER 600 MG TAB PO SCH (13:30)
[2022-03-10] MEDS ORDERED: PRED20TA PO (14:12)
[2022-03-10] MEDS ORDERED: BENZ200C70 PO (14:12)
[2022-03-10] MEDS ORDERED: MUCI1TAB16 PO (14:12)
[2022-03-10 14:29] VITALS: BP 148/77
== END 2022-03-10 14:30 | disposition home or self-care (01) ==
LOC: M ED 11:56
DX: R09.81 Nasal congestion (principal); J06.9 Acute upper respiratory infection, unspecified; R05.9 Cough, unspecified; I10 Essential (primary) hypertension; J45.909 Unspecified asthma, uncomplicated; M79.7 Fibromyalgia; K21.9 Gastro-esophageal reflux disease without esophagitis; F17.200 Nicotine dependence, unspecified, uncomplicated; Z79.899 Other long term (current) drug therapy; Z88.8 Allergy status to other drugs, medicaments and biological substances; Z88.5 Allergy status to narcotic agent
CPT/HCPCS: 71046; 87631; 99283; J7512

== ENCOUNTER 2022-03-13 21:08 | Emergency (ER) | payer MEDICARE ==
[~2022-03-13] VITALS: Ht 149.9 cm; Wt 67.3 kg
[~2022-03-13 21:08] MED LIST changes: +BENZ200C70 PO; +MUCI1TAB16 PO; +PRED20TA PO
[2022-03-13 21:09] VITALS: BP 172/98
== END 2022-03-13 23:24 | disposition left against medical advice (07) ==
LOC: M ED 21:08
DX: Z53.21 Procedure and treatment not carried out due to patient leaving prior to being seen by health care provider (principal)

== ENCOUNTER 2022-12-07 06:00 | Emergency (ER) | payer MEDICARE ==
[~2022-12-07] VITALS: Ht 149.9 cm; Wt 66.3 kg
[~2022-12-07 06:00] MED LIST changes: -POTA10CA32 PO; +POTA10CA60 PO
[2022-12-07] MEDS ORDERED: DOXYCYCLINE HYCLATE 100MG TABLET PO ONE (07:40)
[2022-12-07] MEDS ORDERED: DOXY100C82 PO (07:41)
[2022-12-07 08:16] VITALS: BP 141/90; TEMP 98.1; O2SAT 96
== END 2022-12-07 08:17 | disposition home or self-care (01) ==
LOC: M ED 06:00
DX: L03.115 Cellulitis of right lower limb (principal); I10 Essential (primary) hypertension; E78.5 Hyperlipidemia, unspecified; G89.4 Chronic pain syndrome; G25.81 Restless legs syndrome; M54.50 Low back pain, unspecified; F17.200 Nicotine dependence, unspecified, uncomplicated; Z88.5 Allergy status to narcotic agent; Z88.6 Allergy status to analgesic agent; Z79.52 Long term (current) use of systemic steroids; Z79.899 Other long term (current) drug therapy; Z79.51 Long term (current) use of inhaled steroids

== ENCOUNTER 2022-12-10 17:18 | Emergency (ER) | payer MEDICARE ==
[~2022-12-10] VITALS: Ht 149.9 cm; Wt 68.2 kg
[~2022-12-10 17:18] MED LIST changes: +DOXY100C82 PO
[2022-12-10 18:43] LABS: BASO # 0.1 10^3/uL (0.0-0.2); BASO % 0.7 % (0.0-1.0); EOS # 0.1 10^3/uL (0.0-0.5); EOS % 1.3 % (0.0-3.0); HEMATOCRIT 47.1 % (36.0-47.0); HEMOGLOBIN 15.4 g/dl (12.0-15.5); LYMPH # 2.7 10^3/uL (1.5-5.0); LYMPH % 26.8 % (24.0-44.0); MEAN CORPUSCULAR HEMOGLOBIN 30.1 pg (27.0-33.0); MEAN CORPUSCULAR HGB CONC 32.7 g/dl (32.0-36.5); MEAN CORPUSCULAR VOLUME 92.2 fl (80.0-96.0); MONO # 0.9 10^3/uL (0.0-0.8); MONO % 9.4 % (2.0-8.0); NEUTROPHILS # 6.1 10^3/uL (1.5-8.5); NEUTROPHILS % 61.4 % (36.0-66.0); PLATELET COUNT, AUTOMATED 239 10^3/uL (150-450); RED BLOOD COUNT 5.11 10^6/uL (4.00-5.40)
[2022-12-10 19:01] LABS: ERYTHROCYTE SEDIMENTATION RATE 28 mm/hr (0-30)
[2022-12-10 19:07] LABS: BLOOD UREA NITROGEN 11 MG/DL (9-23); CALCIUM LEVEL 9.6 MG/DL (8.5-10.1); CARBON DIOXIDE LEVEL 28 MMOL/L (20-31); CHLORIDE LEVEL 106 MMOL/L (98-107); CREATININE FOR GFR 0.51 MG/DL (0.55-1.30); GLOMERULAR FILTRATION RATE > 60.0 (>51); GLUCOSE, FASTING 96 MG/DL (60-100); POTASSIUM SERUM 4.5 MMOL/L (3.5-5.1); SODIUM LEVEL 138 MMOL/L (136-145)
[2022-12-10] MEDS ORDERED: KETOROLAC 30 MG/ML 1ML VIAL IV ONE (20:25)
[2022-12-10 22:15] VITALS: BP 140/90; TEMP 97; O2SAT 96
== END 2022-12-10 22:19 | disposition home or self-care (01) ==
LOC: M ED 17:18
DX: L03.115 Cellulitis of right lower limb (principal); I10 Essential (primary) hypertension; F41.9 Anxiety disorder, unspecified; M79.7 Fibromyalgia; J45.909 Unspecified asthma, uncomplicated; K21.9 Gastro-esophageal reflux disease without esophagitis; M54.9 Dorsalgia, unspecified; G25.81 Restless legs syndrome; F17.200 Nicotine dependence, unspecified, uncomplicated; Z88.5 Allergy status to narcotic agent; Z88.6 Allergy status to analgesic agent; Z88.8 Allergy status to other drugs, medicaments and biological substances; Z79.899 Other long term (current) drug therapy; Z79.51 Long term (current) use of inhaled steroids
CPT/HCPCS: 80048; 83605; 85025; 85652; 86140; 87040; 93971; 96374; 99283; J1885

== ENCOUNTER 2022-12-15 15:00 | Inpatient (IN) | payer MEDICARE ==
[~2022-12-15] VITALS: Ht 149.9 cm; Wt 66.0 kg
[2022-12-15 18:04] LABS: BASO # 0.1 10^3/uL (0.0-0.2); BASO % 0.7 % (0.0-1.0); EOS # 0.2 10^3/uL (0.0-0.5); EOS % 1.5 % (0.0-3.0); HEMATOCRIT 49.7 % (36.0-47.0); HEMOGLOBIN 16.1 g/dl (12.0-15.5); LYMPH # 3.1 10^3/uL (1.5-5.0); MEAN CORPUSCULAR HEMOGLOBIN 30.2 pg (27.0-33.0); MEAN CORPUSCULAR HGB CONC 32.4 g/dl (32.0-36.5); MEAN CORPUSCULAR VOLUME 93.2 fl (80.0-96.0); MONO # 0.9 10^3/uL (0.0-0.8); MONO % 8.2 % (2.0-8.0); NEUTROPHILS # 6.2 10^3/uL (1.5-8.5); NEUTROPHILS % 59.2 % (36.0-66.0); PLATELET COUNT, AUTOMATED 283 10^3/uL (150-450); RED BLOOD COUNT 5.33 10^6/uL (4.00-5.40); WHITE BLOOD COUNT 10.5 10^3/uL (4.0-10.0)
[2022-12-15 18:11] LABS: ERYTHROCYTE SEDIMENTATION RATE 24 mm/hr (0-30)
[2022-12-15 18:28] LABS: C REACTIVE PROTEIN QUANTITATIV 1.6 MG/DL (<1.0); URIC ACID 3.9 MG/DL (3.1-7.8)
[2022-12-15] MEDS ORDERED: LISI20TA33 PO (19:41)
[2022-12-15] MEDS ORDERED: VENTAER INH (19:41)
[2022-12-15] MEDS ORDERED: HOME MED LIST COMPLETE! XX SCH (19:45)
[2022-12-15] MEDS ORDERED: ALBUTEROL 90 MCG/ACT 8GM HFA INHALER INH PRN (19:55)
[2022-12-15] MEDS ORDERED: NS 1,000 ML IV SCH (19:55)
[2022-12-15] MEDS ORDERED: ACETAMINOPHEN TAB 650MG DOSE (2X325MG) PO PRN (19:55)
[2022-12-15] MEDS ORDERED: VANCOMYCIN HCL 1,250 MG in NS 250 ML IV ONE (19:55)
[2022-12-15] MEDS ORDERED: KETOROLAC 30 MG/ML 1ML VIAL IV ONE (21:00)
[2022-12-15] MEDS ORDERED: VANCOMYCIN HCL 750 MG, VIAL MATE ADAPTER 1 EACH in D5W 250 ML IV ONE (21:00)
[2022-12-15] MEDS ORDERED: VANCOMYCIN HCL 500 MG in D5W MINI-BAG PLUS 100 ML IV ONE (21:00)
[2022-12-15 23:20] VITALS: BP 143/80; TEMP 97.7; O2SAT 97
[2022-12-16] MEDS: VANCOMYCIN HCL 1,000 MG, VIAL MATE ADAPTER 1 EACH in D5W 250 ML IV SCH ×3 (05:24→21:12)
[2022-12-16 05:47] VITALS: BP 155/95; TEMP 97.7; O2SAT 96
[2022-12-16 06:55] LABS: ALBUMIN 2.8 G/DL (3.2-5.2); ALKALINE PHOSPHATASE 88 U/L (46-116); ALT/SGPT 15 U/L (7.0-40); AST/SGOT < 8 U/L (<34); BILIRUBIN,TOTAL 0.4 MG/DL (0.3-1.2); BLOOD UREA NITROGEN 13 MG/DL (9-23); CALCIUM LEVEL 9.3 MG/DL (8.5-10.1); CARBON DIOXIDE LEVEL 29 MMOL/L (20-31); CHLORIDE LEVEL 109 MMOL/L (98-107); CREATININE FOR GFR 0.65 MG/DL (0.55-1.30); GLOMERULAR FILTRATION RATE > 60.0 (>51); GLUCOSE, FASTING 97 MG/DL (60-100); POTASSIUM SERUM 4.9 MMOL/L (3.5-5.1); SODIUM LEVEL 141 MMOL/L (136-145)
[2022-12-16] MEDS: NYSTATIN 100,000 UNITS/GM TOPICAL PWD 15GM TOP SCH ×2 (09:00→21:12)
[2022-12-16 14:00] VITALS: BP 148/90; TEMP 97.7; O2SAT 96
[2022-12-16 20:36] VITALS: BP 149/94; TEMP 97.2; O2SAT 97
[2022-12-16] MEDS: KETOROLAC 30 MG/ML 1ML VIAL IV PRN (21:12)
[2022-12-17] MEDS: VANCOMYCIN HCL 1,000 MG, VIAL MATE ADAPTER 1 EACH in D5W 250 ML IV SCH (04:35)
[2022-12-17 05:43] LABS: BASO # 0.1 10^3/uL (0.0-0.2); EOS # 0.2 10^3/uL (0.0-0.5); EOS % 1.9 % (0.0-3.0); HEMATOCRIT 41.2 % (36.0-47.0); LYMPH # 2.4 10^3/uL (1.5-5.0); LYMPH % 29.2 % (24.0-44.0); MEAN CORPUSCULAR HEMOGLOBIN 29.9 pg (27.0-33.0); MEAN CORPUSCULAR HGB CONC 32.3 g/dl (32.0-36.5); MEAN CORPUSCULAR VOLUME 92.6 fl (80.0-96.0); MONO # 0.8 10^3/uL (0.0-0.8); MONO % 9.3 % (2.0-8.0); NEUTROPHILS # 4.7 10^3/uL (1.5-8.5); NEUTROPHILS % 58.2 % (36.0-66.0); PLATELET COUNT, AUTOMATED 218 10^3/uL (150-450); RED BLOOD COUNT 4.45 10^6/uL (4.00-5.40); WHITE BLOOD COUNT 8.1 10^3/uL (4.0-10.0)
[2022-12-17 06:03] VITALS: BP 152/93; TEMP 97.5; O2SAT 95
[2022-12-17 06:13] LABS: HEMOGLOBIN 13.3 g/dl (12.0-15.5)
[2022-12-17 06:21] LABS: BLOOD UREA NITROGEN 11 MG/DL (9-23); CALCIUM LEVEL 9.2 MG/DL (8.5-10.1); CARBON DIOXIDE LEVEL 29 MMOL/L (20-31); CHLORIDE LEVEL 106 MMOL/L (98-107); CREATININE FOR GFR 0.59 MG/DL (0.55-1.30); GLOMERULAR FILTRATION RATE > 60.0 (>51); GLUCOSE, FASTING 107 MG/DL (60-100); POTASSIUM SERUM 4.2 MMOL/L (3.5-5.1); SODIUM LEVEL 141 MMOL/L (136-145)
[2022-12-17 06:24] LABS: ERYTHROCYTE SEDIMENTATION RATE 12 mm/hr (0-30)
[2022-12-17] MEDS ORDERED: traMADol 50 MG TAB PO PRN (06:35)
[2022-12-17] MEDS ORDERED: NICOTINE POLACRILEX 2 MG GUM PO ONE (07:00)
[2022-12-17] MEDS ORDERED: ALPRAZolam 0.5 MG TAB PO ONE (07:00)
[2022-12-17] MEDS ORDERED: NICOTINE POLACRILEX 2 MG GUM PO PRN (08:35)
[2022-12-17] MEDS: NICOTINE 21MG/24HR 1 EA TRANSDERMAL TD SCH (08:51)
[2022-12-17] MEDS: KETOROLAC 30 MG/ML 1ML VIAL IV PRN ×2 (08:51→22:01)
[2022-12-17] MEDS: NYSTATIN 100,000 UNITS/GM TOPICAL PWD 15GM TOP SCH ×2 (09:00→21:52)
[2022-12-17] MEDS ORDERED: ALPRAZolam 0.5 MG TAB PO PRN (10:30)
[2022-12-17 14:18] VITALS: BP 138/95; TEMP 97.8; O2SAT 98
[2022-12-17] MEDS: ceFAZolin SOD 1 GM in D5W MINI-BAG PLUS 50 ML IV SCH ×2 (15:36→23:43)
[2022-12-17] MEDS ORDERED: SENOKOT S TAB PO PRN (15:55)
[2022-12-17] MEDS ORDERED: MOM 30ML SUSPENSION UDC PO ONE (15:55)
[2022-12-17] MEDS ORDERED: MOM 30ML SUSPENSION UDC PO PRN (15:55)
[2022-12-17] MEDS ORDERED: MIRALAX *UNIT DOSE* 17GM PACKET PO PRN (15:55)
[2022-12-17 19:27] VITALS: TEMP 97.9; O2SAT 97
[2022-12-17] MEDS ORDERED: VANCOMYCIN HCL 1,000 MG, VIAL MATE ADAPTER 1 EACH in D5W 250 ML IV SCH (20:00)
[2022-12-17 21:46] VITALS: BP 147/101
[2022-12-17 21:48] VITALS: BP 166/100
[2022-12-17 22:42] VITALS: BP 160/98
[2022-12-17] MEDS ORDERED: **hydrALAZINE** 10 MG TAB PO ONE (23:05)
[2022-12-18 00:15] VITALS: BP 146/100
[2022-12-18] MEDS ORDERED: **hydrALAZINE** 10 MG TAB PO ONE (00:50)
[2022-12-18 01:05] VITALS: BP 146/100
[2022-12-18 02:58] VITALS: BP 146/97
[2022-12-18 06:05] VITALS: BP 144/90; TEMP 97.7; O2SAT 96
[2022-12-18] MEDS: ceFAZolin SOD 1 GM in D5W MINI-BAG PLUS 50 ML IV SCH (06:10)
[2022-12-18 06:15] LABS: BASO # 0.1 10^3/uL (0.0-0.2); BASO % 0.8 % (0.0-1.0); EOS # 0.2 10^3/uL (0.0-0.5); EOS % 3.1 % (0.0-3.0); HEMATOCRIT 40.7 % (36.0-47.0); HEMOGLOBIN 13.3 g/dl (12.0-15.5); LYMPH # 1.9 10^3/uL (1.5-5.0); LYMPH % 31.8 % (24.0-44.0); MEAN CORPUSCULAR HEMOGLOBIN 30.1 pg (27.0-33.0); MEAN CORPUSCULAR HGB CONC 32.7 g/dl (32.0-36.5); MEAN CORPUSCULAR VOLUME 92.1 fl (80.0-96.0); MONO # 0.6 10^3/uL (0.0-0.8); MONO % 9.6 % (2.0-8.0); NEUTROPHILS # 3.3 10^3/uL (1.5-8.5); NEUTROPHILS % 54.5 % (36.0-66.0); PLATELET COUNT, AUTOMATED 214 10^3/uL (150-450); RED BLOOD COUNT 4.42 10^6/uL (4.00-5.40)
[2022-12-18 06:48] LABS: BLOOD UREA NITROGEN 12 MG/DL (9-23); CALCIUM LEVEL 9.4 MG/DL (8.5-10.1); CARBON DIOXIDE LEVEL 29 MMOL/L (20-31); CHLORIDE LEVEL 106 MMOL/L (98-107); CREATININE FOR GFR 0.59 MG/DL (0.55-1.30); GLOMERULAR FILTRATION RATE > 60.0 (>51); GLUCOSE, FASTING 84 MG/DL (60-100); POTASSIUM SERUM 4.4 MMOL/L (3.5-5.1); SODIUM LEVEL 139 MMOL/L (136-145)
[2022-12-18] MEDS: NYSTATIN 100,000 UNITS/GM TOPICAL PWD 15GM TOP SCH (09:08)
[2022-12-18] MEDS: NICOTINE 21MG/24HR 1 EA TRANSDERMAL TD SCH (09:09)
[2022-12-18] MEDS ORDERED: NYST10006 TOP (10:01)
[2022-12-18] MEDS ORDERED: ACET1TAB55 PO (10:01)
[2022-12-18] MEDS ORDERED: CEPH500C PO (10:06)
[2022-12-18] MEDS ORDERED: ceFAZolin SOD 1 GM in D5W MINI-BAG PLUS 50 ML IV ONE (13:00)
== END 2022-12-18 13:10 | disposition home or self-care (01) | DRG 603 ==
LOC: M ED 15:00 → M ED INP 19:52 → M MS5PR 23:20
PROVIDERS: ADMIT Internal Medicine; ATTEND Family Medicine
DX: L03.115 Cellulitis of right lower limb (principal); F17.210 Nicotine dependence, cigarettes, uncomplicated; J45.909 Unspecified asthma, uncomplicated; I10 Essential (primary) hypertension; Z79.899 Other long term (current) drug therapy; Z88.5 Allergy status to narcotic agent; Z88.6 Allergy status to analgesic agent; Z88.8 Allergy status to other drugs, medicaments and biological substances; B35.3 Tinea pedis

== ENCOUNTER → 2023-09-13 | Outpatient (CLI) | payer MEDICARE ==
[~2023-09-13] MED LIST changes: +ACET1TAB55 PO; +CEPH500C PO; +DICL100G10 TOP; -DICL1GEL3 TOP; +LISI20TA33 PO; +NYST10006 TOP; +VENTAER INH
[2023-09-13 18:25] LABS: HEMATOCRIT 44.8 % (36.0-47.0); HEMOGLOBIN 14.5 g/dl (12.0-15.5); MEAN CORPUSCULAR HEMOGLOBIN 30.8 pg (27.0-33.0); MEAN CORPUSCULAR HGB CONC 32.4 g/dl (32.0-36.5); MEAN CORPUSCULAR VOLUME 95.1 fl (80.0-96.0); PLATELET COUNT, AUTOMATED 219 10^3/uL (150-450); RED BLOOD COUNT 4.71 10^6/uL (4.00-5.40)
[2023-09-13 18:36] LABS: ALBUMIN 3.7 G/DL (3.2-5.2); ALKALINE PHOSPHATASE 79 U/L (46-116); ALT/SGPT 21 U/L (7.0-40); AST/SGOT 11 U/L (<34); BILIRUBIN,TOTAL 0.3 MG/DL (0.3-1.2); BLOOD UREA NITROGEN 12 MG/DL (9-23); CALCIUM LEVEL 9.9 MG/DL (8.5-10.1); CARBON DIOXIDE LEVEL 29 MMOL/L (20-31); CHLORIDE LEVEL 109 MMOL/L (98-107); CREATININE FOR GFR 0.69 MG/DL (0.55-1.30); FREE T4 1.09 NG/DL (0.89-1.76); GLOMERULAR FILTRATION RATE > 60.0 (>51); GLUCOSE, FASTING 84 MG/DL (60-100); POTASSIUM SERUM 4.2 MMOL/L (3.5-5.1); SODIUM LEVEL 142 MMOL/L (136-145); THYROID STIMULATING HORMONE 0.962 uIU/ML (0.55-4.78); TOTAL PROTEIN 5.9 G/DL (5.7-8.2)
[2023-09-13 18:37] LABS: TOTAL 25(OH) VITAMIN D 11.8 NG/ML (20.0-100.0)
[2023-09-13 18:43] LABS: HEMOGLOBIN A1c 4.9 % (4.0-6.0)
== END ==
LOC: M WUC 11:30
PROVIDERS: ATTEND Nurse Practitioner Adult Health
DX: Z00.00 Encounter for general adult medical examination without abnormal findings (principal); I10 Essential (primary) hypertension; R73.01 Impaired fasting glucose; E55.9 Vitamin D deficiency, unspecified; Z13.29 Encounter for screening for other suspected endocrine disorder; R53.83 Other fatigue; Z86.39 Personal history of other endocrine, nutritional and metabolic disease

== ENCOUNTER 2023-10-28 09:10 | Emergency (ER) | payer MEDICARE ==
[~2023-10-28] VITALS: Ht 149.9 cm; Wt 68.2 kg
[~2023-10-28 09:10] MED LIST changes: -POTA10CA60 PO; +POTA10CA70 PO
[2023-10-28 11:29] VITALS: BP 118/78; TEMP 97.3; O2SAT 95
== END 2023-10-28 11:31 | disposition home or self-care (01) ==
LOC: M ED 09:10
DX: J06.9 Acute upper respiratory infection, unspecified (principal); I10 Essential (primary) hypertension; F17.210 Nicotine dependence, cigarettes, uncomplicated; F12.10 Cannabis abuse, uncomplicated; Z88.8 Allergy status to other drugs, medicaments and biological substances; Z79.1 Long term (current) use of non-steroidal anti-inflammatories (NSAID); Z79.51 Long term (current) use of inhaled steroids; Z79.899 Other long term (current) drug therapy

== ENCOUNTER 2024-12-25 18:39 | Emergency (ER) | payer MEDICARE ==
[~2024-12-25] VITALS: Ht 149.9 cm; Wt 66.6 kg
[~2024-12-25 18:39] MED LIST changes: +DOXY-442 PO; -DOXY100C82 PO; +ONDA-282 PO; -ONDA4TAB6 PO
[2024-12-25 21:08] VITALS: BP 126/92; TEMP 98; O2SAT 95
== END 2024-12-26 00:12 | disposition home or self-care (01) ==
LOC: M ED 18:39
DX: M65.4 Radial styloid tenosynovitis [de Quervain] (principal); I10 Essential (primary) hypertension; M79.7 Fibromyalgia; F17.210 Nicotine dependence, cigarettes, uncomplicated; Z88.5 Allergy status to narcotic agent; Z88.6 Allergy status to analgesic agent; Z88.8 Allergy status to other drugs, medicaments and biological substances; Z79.1 Long term (current) use of non-steroidal anti-inflammatories (NSAID); Z79.51 Long term (current) use of inhaled steroids; Z79.899 Other long term (current) drug therapy

== ENCOUNTER 2025-01-30 12:10 | Emergency (ER) | payer MEDICARE ==
[~2025-01-30] VITALS: Ht 149.9 cm; Wt 64.6 kg
[2025-01-30 13:44] LABS: BASO # 0.1 10^3/uL (0.0-0.2); BASO % 0.7 % (0.0-1.0); EOS # 0.1 10^3/uL (0.0-0.5); EOS % 0.8 % (0.0-3.0); LYMPH # 1.7 10^3/uL (1.5-5.0); LYMPH % 17.8 % (24.0-44.0); MONO # 0.9 10^3/uL (0.0-0.8); MONO % 9.8 % (2.0-8.0); NEUTROPHILS # 6.8 10^3/uL (1.5-8.5); NEUTROPHILS % 70.5 % (36.0-66.0); PLATELET COUNT, AUTOMATED 229 10^3/uL (150-450)
[2025-01-30 13:48] LABS: VENOUS BASE EXCESS -1.3 (-2.0-2.0); VENOUS HCO3 25.2 MMOL/L (23.0-27.0); VENOUS O2 SATURATION 86.8 % (60.0-80.0); VENOUS PARTIAL PRESSURE CO2 48.7 mmHg (38.0-50.0); VENOUS PARTIAL PRESSURE O2 49.4 mmHg (30.0-50.0); VENOUS PH 7.332 UNITS (7.330-7.430); VENOUS STANDARD HCO3 23.1 MMOL/L; VENOUS TOTAL CO2 26.7 MMOL/L (24.0-28.0)
[2025-01-30 13:57] LABS: INR 0.82
[2025-01-30 14:22] LABS: CK-MB VALUE MASS 3.0 NG/ML (<3.6)
[2025-01-30 14:23] LABS: ETHYL ALCOHOL (ETHANOL) < 0.003 % (0.000-0.010)
[2025-01-30 14:26] LABS: ALT/SGPT 22 U/L (7.0-40); AST/SGOT 17 U/L (<34); FREE T4 1.30 NG/DL (0.89-1.76)
[2025-01-30 14:27] LABS: VITAMIN B12 LEVEL 406 PG/ML (211-911)
[2025-01-30 14:31] LABS: CPK CREATINE PHOSPHOKINASE 106 U/L (34-145); MB/CK RELATIVE INDEX 2.83 (< OR =4)
[2025-01-30 14:56] LABS: CHLORIDE LEVEL 107 MMOL/L (98-107); POTASSIUM SERUM 4.9 MMOL/L (3.5-5.1); SODIUM LEVEL 140 MMOL/L (136-145)
[2025-01-30 14:58] LABS: CARBON DIOXIDE LEVEL 26 MMOL/L (20-31)
[2025-01-30 15:03] LABS: CALCIUM LEVEL 10.4 MG/DL (8.5-10.1)
[2025-01-30 15:05] LABS: CREATININE FOR GFR 0.98 MG/DL (0.55-1.30); GLOMERULAR FILTRATION RATE 66.5 (>51)
[2025-01-30 15:11] LABS: CK-MB VALUE MASS 2.8 NG/ML (<3.6)
[2025-01-30 15:13] LABS: CPK CREATINE PHOSPHOKINASE 98.0 U/L (34-145); MB/CK RELATIVE INDEX 2.85 (< OR =4)
[2025-01-30 15:38] LABS: APPEARANCE, URINE HAZY (CLEAR); BACTERIA, URINE AUTO NEGATIVE (NEGATIVE); BILIRUBIN, URINE AUTO NEGATIVE (NEGATIVE); BLOOD, URINE BLOOD NEGATIVE (NEGATIVE); CALCIUM OXALATE CRYSTALS SMALL; GLUCOSE, URINE (UA) AUTO NEGATIVE (NEGATIVE); KETONE, URINE AUTO TRACE mg/dL (NEGATIVE); LEUKOCYTE ESTERASE, URINE AUTO NEGATIVE (NEGATIVE); MUCUS, URINE SMALL (NEGATIVE); NITRITE, URINE AUTO NEGATIVE (NEGATIVE); PROTEIN, URINE AUTO NEGATIVE (NEGATIVE); RBC, URINE AUTO 1 /HPF (0-3); SPECIFIC GRAVITY URINE AUTO 1.009 (1.002-1.035); SQUAMOUS EPITHELIAL CELL UR AU 3 /HPF (0-6); UROBILINOGEN, URINE AUTO 0.2 mg/dL (0.0-2.0); WBC, URINE AUTO 3 /HPF (0-3)
[2025-01-30 15:52] LABS: AMPHETAMINES LEVEL URINE NEGATIVE (NEGATIVE); BARBITURATES URINE NEGATIVE (NEGATIVE); BENZODIAZEPINES URINE NEGATIVE (NEGATIVE); COCAINE METABOLITE URINE NEGATIVE (NEGATIVE); METHADONE URINE NEGATIVE (NEGATIVE); OPIATES URINE NEGATIVE (NEGATIVE); PHENCYCLIDINE URINE NEGATIVE (NEGATIVE)
[2025-01-30 16:04] LABS: CANNABINOIDS URINE POSITIVE (NEGATIVE)
[2025-01-30 16:20] VITALS: BP 116/80; TEMP 96.8; O2SAT 92
== END 2025-01-30 16:21 | disposition home or self-care (01) ==
LOC: M ED 12:10
DX: R25.1 Tremor, unspecified (principal); I10 Essential (primary) hypertension; J45.909 Unspecified asthma, uncomplicated; F17.210 Nicotine dependence, cigarettes, uncomplicated; F12.10 Cannabis abuse, uncomplicated; Z88.5 Allergy status to narcotic agent; Z88.6 Allergy status to analgesic agent; Z88.8 Allergy status to other drugs, medicaments and biological substances; Z79.1 Long term (current) use of non-steroidal anti-inflammatories (NSAID); Z79.51 Long term (current) use of inhaled steroids; Z79.899 Other long term (current) drug therapy

== ENCOUNTER 2025-06-02 11:56 | Emergency (ER) | payer MEDICARE, MEDICAID ==
[~2025-06-02] VITALS: Ht 149.9 cm; Wt 63.6 kg
[2025-06-02 11:58] VITALS: BP 135/85; TEMP 97.8; O2SAT 97
== END 2025-06-02 16:07 | disposition left against medical advice (07) ==
LOC: M ED 11:56
DX: Z53.21 Procedure and treatment not carried out due to patient leaving prior to being seen by health care provider (principal)